=== PATIENT | female | born 1950 | race Caucasian/White ===

== ENCOUNTER 2017-12-04 13:30 | Emergency (ER) | payer BC ==
--- OUTSIDE RECORDS SUMMARY | 2017-12-04 13:37 | XMS REPORT ---
:1950 External Reference #:[id number] Author Organization [facility] Address [address] [address] Phone [phone] Care Team Providers Name Role Phone Janette Bailon MD Primary Care Physician Unavailable Payers Type Date Identification Numbers Payment Provider Subscriber Commercial Effective: Policy Number: [id number] BS Gus Gamble 2017 PayID: [id number] [facility] [id number] ILA Teixeira [id number] Medigap Part B Effective: 2011 Policy Number: BS Gus Gamble [id number] Expires: 2017 PayID: [id number] [place] [id number] ILA Te[place] [id number] Medigap Part B Effective: 2003 Policy Number: BS Caio Gamble [id number] Expires: 2011 Group Number: [id number] [facility] [id number] PayID: [id number] ILA Teixeira [id number] Problems Date Description Provider Status Onset: 07/26/2011 Migraine Heather Sanderson, N.P. Active Onset: 07/26/2011 Hyperlipidemia Heather Sanderson, N.P. 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 Cigarette Use Never Smoked Cigarettes ETOH Use Currently consumes alcohol Rare Smoking Patient has never smoked Recreational Drug Use Denies Drug Use Daily Caffeine Consumes on average 2 cups of decaff coffee per day Exercise Type/Frequency Exercises regularly 3 - 4 times weekly Allergies, Adverse Reactions, Alerts Date Description Reaction Status Severity Comments 01/10/2011 NKDA active Medications Medication Date Status Form Strength Qnty SIG Indications Ordering Provider Amoxicillin/Cl 11/14 Active Tablets 875-125mg 14tab take 1 tab J02.9 Zsofia avulanate s by mouth Donavon, Potassium twice a day CIGARETTE SELLER for 7 days Venlafaxine 11/05 Active Caps ER 75mg 30cap 1 by mouth Heather HCL 24HR s every day Varn, N.P. Fluticasone 04/15 Active Suspension 50mcg/Act 16gm 1 spray each 461.9 Heather Propionate nostril Varn, N.P. daily as needed Lipitor 08/27 Active Tablets 20mg 90tab take one E78.5 Snow s tablet by Skyla, mouth every M.D., FACP day Zolpidem 07/26 Active Tablets 5mg 30tab 1 tablet by Janette Tartrate s mouth as Cotton, needed at M.D. bedtime Estrace 07/26 Active Cream 0.1mg/GM 42.5u insert one nits gram Skyla, vaginally M.D., FACP once weekly Meloxicam 07/30 Hx Tablets 7.5mg 30tab 1 by mouth M79.671 Damon s per day Zia Carrasco M.D. 10/13 Venlafaxine 08/04 Hx Caps ER 150mg 90cap 1 by mouth Heather HCL 24HR s every day Varn, N.P. - 11/05 Ciprofloxacin 05/09 Hx Tablets 250mg 14tab 1 tab by 599.0 Anshul HCL s mouth twice Romanian, PICK REMOVER - a day x's 7 Azithromycin 08/01 Hx Tablets 250mg 6tabs two tabs day 461.9 Snow one, one Skyla, - daily till M.D., FACP 08/11 Vicodin 10/19 Hx Tablets 5-300mg 40tab 1-2tabs po s q4-6h Young, - M.D. 08/01 Venlafaxine 12/05 Hx Caps ER 75mg 90cap take one Heather HCL 24HR s capsule by Maria E, N.P. - mouth every Azithromycin 04/15 Hx Tablets 250mg 6tabs two tabs day 461.9 one, one Skyla, - daily till M.D., FACP 04/25 Ventolin HFA 04/15 Hx Aerosol 108(90Bas 1inha 1 to 2 466.0 e) mcg/ac ler inhalations Skyla, - every 4 M.D., FACP 10/25 hours needed Azithromycin 01/01 Hx Tablets 250mg 6tabs two tabs day one, one Skyla, - daily until M.D., FACP 01/06 Levaquin 01/16 Hx Tablets 250mg 7tabs 1 tab by 466.0 mouth every Skyla, - day for 7 M.D., FACP Flovent HFA 01/16 Hx Aerosol 44mcg/Act 10.60 2 puffs 466.0 0gm twice daily Skyla, - M.D., FACP 01/26 Robitussin ac 01/16 Hx Solution 4Oz 1-2 tsp at 466.0 bedtime as Skyla, - needed M.D., FACP 01/21 Azithromycin 01/02 Hx Tablets 250mg 6tabs two tabs day one, one Skyla, - daily till M.D., FACP 01/16 Veramyst 01/02 Hx Suspension 27.5mcg/S 1mon 2 sprays pray each nostril Skyla, - daily as M.D., FACP 07/26 Effexor XR 12/19 Hx Caps ER 75mg 90cap Take One 24HR s Capsule By Skyla, - Mouth Every M.D., FACP Multi Vitamin Hx Tablets 1 tablet Unknown Daily /0000 patricia(not - presently 08/19 taking) Co Q 10 Hx Capsules 100mg 2 by mouth Unknown /0000 every day - 11/05 Medications Administered in Office Medication Date Status Form Strength Qnty SIG Indications Ordering Provider Triamcinolone Injection Zaneb (Kenalog) 2014 MD Sadia Immunizations CPT Code Status Date Vaccine Lot # [id number] Given 07/23/2017 Fluzone High Dose Q2039 Given 07/20/2016 Flu Vaccine NOS Q2037 Given 08/10/2015 Fluvirin Im 3Yrs And Older Q2035 Given 08/04/2014 Afluria Vaccine 21541 Given 08/01/2014 Zoster (Zostavax) [id number] Given 08/16/2013 Fluzone High Dose Q2037 Given 08/10/2012 Fluvirin Im 3Yrs And Older 86777 Given 01/02/2012 Tdap - Tetanus/Diptheria/Acellular Pertussis [id number] Q2037 Given 08/16/2011 Fluvirin Im 3Yrs And Older 04850 Given 09/13/2008 Influenza Virus 3Yrs & Over 02638 Given 09/13/2008 Influenza Virus 3Yrs & Over 91479 Given 09/01/2006 Influenza Virus 3Yrs & Over Vital Signs Date Vital Result Comment 11/14/2017 Height 67.5 inches 5'7.50" Weight 161.00 lb Heart Rate 84 /min BP Systolic Sitting 142 mmHg BP Diastolic Sitting 83 mmHg Respiratory Rate 14 /min Body Temperature 96.6 F O2 % BldC Oximetry 96 % BMI (Body Mass Index) 24.8 kg/m2 08/20/2017 Height 67.5 inches 5'7.50" Weight 164.75 lb with shoes Heart Rate 82 /min BP Systolic Sitting 144 mmHg LA reg cuff BP Diastolic Sitting 84 mmHg LA reg cuff BMI (Body Mass Index) 25.4 kg/m2 Ejection Fraction 55% - 60% echo 10/25/16 11/13/2016 Height 67.5 inches 5'7.50" Weight 163.00 lb Heart Rate 78 /min BP Systolic Sitting 132 mmHg Ra< reg BP Diastolic Sitting 70 mmHg Ra< reg BMI (Body Mass Index) 25.1 kg/m2 Ejection Fraction 55%-60% 10/25/17 echo 11/05/2016 Height 67.5 inches 5'7.50" Weight 159.00 lb Heart Rate 80 /min BP Systolic Sitting 122 mmHg BP Diastolic Sitting 76 mmHg Respiratory Rate 15 /min Body Temperature 97.9 F O2 % BldC Oximetry 98 % BMI (Body Mass Index) 24.5 kg/m2 10/14/2016 Height 68 inches 5'8" Weight 163.00 lb with shoes Heart Rate 88 /min BP Systolic Sitting 146 mmHg LA reg cuff BP Diastolic Sitting 88 mmHg LA reg cuff BMI (Body Mass Index) 24.8 kg/m2 10/10/2016 Height 68 inches 5'8" Weight 155.00 lb Pain Level 5 BMI (Body Mass Index) 23.6 kg/m2 09/11/2016 Height 68 inches 5'8" Weight 155.00 lb Heart Rate 78 /min BP Systolic 142 mmHg BP Diastolic 78 mmHg BMI (Body Mass Index) 23.6 kg/m2 07/30/2016 Height 68 inches 5'8" Weight 155.00 lb Heart Rate 89 /min BP Systolic 146 mmHg BP Diastolic 90 mmHg BMI (Body Mass Index) 23.6 kg/m2 07/23/2016 Height 67 inches 5'7" Weight 160.00 lb Heart Rate 87 /min BP Systolic 131 mmHg BP Diastolic 82 mmHg Body Temperature 98.9 F O2 % BldC Oximetry 98 % BMI (Body Mass Index) 25.1 kg/m2 04/23/2016 Weight 158.50 lb Heart Rate 91 /min BP Systolic Sitting 125 mmHg BP Diastolic Sitting 76 mmHg Body Temperature 99.2 F O2 % BldC Oximetry 97 % 09/19/2015 Height 67 inches 5'7" Weight 157.00 lb BMI (Body Mass Index) 24.6 kg/m2 09/13/2015 Height 67.25 inches 5'7.25" Weight 159.00 lb Heart Rate 84 /min BP Systolic Sitting 124 mmHg BP Diastolic Sitting 82 mmHg Respiratory Rate 15 /min O2 % BldC Oximetry 96 % BMI (Body Mass Index) 24.7 kg/m2 08/04/2015 Height 67.25 inches 5'7.25" Weight 162.00 lb Heart Rate 71 /min BP Systolic Sitting 135 mmHg BP Diastolic Sitting 83 mmHg Body Temperature 97.9 F O2 % BldC Oximetry 98 % BMI (Body Mass Index) 25.2 kg/m2 05/09/2015 Height 68 inches 5'8" Weight 159.25 lb Heart Rate 94 /min BP Systolic Sitting 122 mmHg BP Diastolic Sitting 72 mmHg Body Temperature 97.6 F O2 % BldC Oximetry 98 % BMI (Body Mass Index) 24.2 kg/m2 10/25/2014 Height 68 inches 5'8" Weight 163.00 lb boots on Heart Rate 78 /min BP Systolic Sitting 138 mmHg BP Diastolic Sitting 80 mmHg BMI (Body Mass Index) 24.8 kg/m2 08/01/2014 Height 68 inches 5'8" Weight 156.00 lb Heart Rate 74 /min BP Systolic Sitting 114 mmHg BP Diastolic Sitting 70 mmHg Body Temperature 98.6 F O2 % BldC Oximetry 96 % BMI (Body Mass Index) 23.7 kg/m2 10/05/2013 Height 68 inches 5'8" Weight 155.00 lb Heart Rate 84 /min BP Systolic 146 mmHg BP Diastolic 88 mmHg BMI (Body Mass Index) 23.6 kg/m2 07/30/2013 Height 68 inches 5'8" Weight 158.00 lb Heart Rate 72 /min BP Systolic Sitting 130 mmHg BP Diastolic Sitting 80 mmHg BMI (Body Mass Index) 24.0 kg/m2 02/03/2013 Height 68 inches 5'8" Weight 158.00 lb Heart Rate 64 /min BP Systolic Sitting 136 mmHg BP Diastolic Sitting 78 mmHg BMI (Body Mass Index) 24.0 kg/m2 07/28/2012 Height 68 inches 5'8" Weight 156.00 lb Heart Rate 72 /min BP Systolic Sitting 132 mmHg BP Diastolic Sitting 72 mmHg BMI (Body Mass Index) 23.7 kg/m2 04/15/2012 Height 68 inches 5'8" Weight 157.00 lb Heart Rate 84 /min BP Systolic Sitting 126 mmHg BP Diastolic Sitting 72 mmHg Body Temperature 98.7 F BMI (Body Mass Index) 23.9 kg/m2 01/07/2012 Height 68 inches 5'8" Weight 157.25 lb Heart Rate 60 /min BP Systolic Sitting 120 mmHg BP Diastolic Sitting 70 mmHg BMI (Body Mass Index) 23.9 kg/m2 08/27/2011 Height 68 inches 5'8" Weight 157.00 lb Heart Rate 60 /min BP Systolic Sitting 118 mmHg L BP Diastolic Sitting 74 mmHg L BMI (Body Mass Index) 23.9 kg/m2 07/26/2011 Height 68 inches 5'8" Weight 153.00 lb Heart Rate 72 /min BP Systolic Sitting 128 mmHg L BP Diastolic Sitting 80 mmHg L BMI (Body Mass Index) 23.3 kg/m2 01/16/2011 Weight 156.00 lb Heart Rate 80 /min BP Systolic 106 mmHg BP Diastolic 70 mmHg Body Temperature 99.8 F 01/02/2011 Weight 156.00 lb Heart Rate 82 /min BP Systolic 120 mmHg BP Diastolic 70 mmHg Body Temperature 98.3 F Results Test Date Test Result H/L Range Note Laboratory test finding 11/05/2016 Cytology SEE RESULT BELOW 1 HPV Rna Ww/Reflex Genotype Negative Negative 2 CBC Auto Diff 10/16/2016 White Blood Count 3.6 10^3/uL 3.5-10.8 Red Blood Count 4.03 10^6/uL 4.0-5.4 Hemoglobin 13.1 g/dL 12.0-16.0 Hematocrit 39 % 35-47 Mean Corpuscular Volume 98 fL High 80-97 Mean Corpuscular Hemoglobin 33 pg High 27-31 Mean Corpuscular HGB Conc 33 g/dL 31-36 Red Cell Distribution Width 12 % 10.5-15 Platelet Count 180 10^3/uL 150-450 Mean Platelet Volume 10 um3 7.4-10.4 Abs Neutrophils 2.3 10^3/uL 1.5-7.7 Abs Lymphocytes 1.0 10^3/uL 1.0-4.8 Abs Monocytes 0.2 10^3/uL 0-0.8 Abs Eosinophils 0.1 10^3/uL 0-0.6 Abs Basophils 0 10^3/uL 0-0.2 Abs Nucleated RBC 0 10^3/uL Granulocyte % 64.0 % 38-83 Lymphocyte % 26.8 % 25-47 Monocyte % 6.8 % 1-9 Eosinophil % 1.5 % 0-6 Basophil % 0.9 % 0-2 Nucleated Red Blood Cells % 0 Comp Metabolic Panel 10/16/2016 Sodium 140 mmol/L 133-145 Potassium 4.0 mmol/L 3.5-5.0 Chloride 103 mmol/L 101-111 Co2 Carbon Dioxide 33 mmol/L High 22-32 Anion Gap 4 mmol/L 2-11 Glucose 84 mg/dL 70-100 Blood Urea Nitrogen 16 mg/dL 6-24 Creatinine 0.66 mg/dL 0.51-0.95 BUN/Creatinine Ratio 24.2 High 8-20 Calcium 9.2 mg/dL 8.6-10.3 Total Protein 6.6 g/dL 6.4-8.9 Albumin 4.1 g/dL 3.2-5.2 Globulin 2.5 g/dL 2-4 Albumin/Globulin Ratio 1.6 1-3 Total Bilirubin 0.60 mg/dL 0.2-1.0 Alkaline Phosphatase 93 U/L 34-104 Alt 18 U/L 7-52 Ast 18 U/L 13-39 Egfr Non- 89.6 >60 Egfr 115.2 >60 3 Laboratory test finding 10/16/2016 Cortisol 11.26 ?g/dL 4 Magnesium 2.2 mg/dL 1.9-2.7 T3 Free 2.60 pg/mL 2.5-3.9 Free T4 (Free Thyroxine) 0.75 ng/dL 0.61-1.12 TSH (Thyroid Stim Horm) 1.21 mcIU/mL 0.34-5.60 Vitamin D 1,25 And Vitamin 10/16/2016 Vitamin D Total 25(Oh) 62.1 ng/mL High 30-50 D,2 Vitamin D, 1,25 Dihydroxy 66 pg/mL 18-78 5 Laboratory test finding 10/16/2016 Vitamin B12 456 pg/mL 180-914 6 Lipid Profile (Trig/Chol/HDL) 10/16/2016 Triglycerides 78 mg/dL 7 Cholesterol 143 mg/dL 8 HDL Cholesterol 48.4 mg/dL 9 LDL Cholesterol 79 mg/dL 10 Laboratory test 07/16/2016 C Reactive Protein < 1.00 mg/L < 5.00 11, 12 finding CBC Auto Diff 07/16/2016 White Blood Count 3.8 10^3/uL 3.5-10.8 11 Red Blood Count 3.98 10^6/uL Low 4.0-5.4 11 Hemoglobin 13.3 g/dL 12.0-16.0 11 Hematocrit 39 % 35-47 11 Mean Corpuscular Volume 99 fL High 80-97 11 Mean Corpuscular Hemoglobin 33 pg High 27-31 11 Mean Corpuscular HGB Conc 34 g/dL 31-36 11 Red Cell Distribution Width 12 % 10.5-15 11 Platelet Count 166 10^3/uL 150-450 11 Mean Platelet Volume 11 um3 High 7.4-10.4 11 Abs Neutrophils 2.4 10^3/uL 1.5-7.7 11 Abs Lymphocytes 1.0 10^3/uL 1.0-4.8 11 Abs Monocytes 0.3 10^3/uL 0-0.8 11 Abs Eosinophils 0 10^3/uL 0-0.6 11 Abs Basophils 0.1 10^3/uL 0-0.2 11 Abs Nucleated RBC 0.01 10^3/uL 11 Granulocyte % 63.6 % 38-83 11 Lymphocyte % 27.0 % 25-47 11 Monocyte % 6.9 % 1-9 11 Eosinophil % 1.2 % 0-6 11 Basophil % 1.3 % 0-2 11 Nucleated Red Blood Cells % 0.4 11 Laboratory test finding 07/16/2016 Erythrocyte Sed Rate 12 mm/Hr 0-40 11 , 13 Rheumatoid Factor <15 IU/mL <15 11, 14 Laboratory test finding 07/16/2016 Lyme Disease Serology Negative Negative 11, 15 Anti Nuclear Antibody 0.2 U 11, 16 Hla B27 07/16/2016 Hla B27 Negative 11, 17 Hla B27 Interp See Comment 11, 18 Basic Metabolic Panel 04/24/2016 Sodium 138 mmol/L 133-145 Potassium 4.4 mmol/L 3.5-5.0 Chloride 102 mmol/L 101-111 Co2 Carbon Dioxide 31 mmol/L 22-32 Anion Gap 5 mmol/L 2-11 Glucose 89 mg/dL 70-100 Blood Urea Nitrogen 19 mg/dL 6-24 Creatinine 0.63 mg/dL 0.51-0.95 BUN/Creatinine Ratio 30.2 High 8-20 Calcium 9.7 mg/dL 8.6-10.3 Egfr Non- 94.8 >60 Egfr 122.0 >60 19 CBC Auto Diff 04/24/2016 White Blood Count 5.2 10^3/uL 3.5-10.8 Red Blood Count 4.14 10^6/uL 4.0-5.4 Hemoglobin 13.5 g/dL 12.0-16.0 Hematocrit 41 % 35-47 Mean Corpuscular Volume 98 fL High 80-97 Mean Corpuscular Hemoglobin 33 pg High 27-31 Mean Corpuscular HGB Conc 33 g/dL 31-36 Red Cell Distribution Width 13 % 10.5-15 Platelet Count 174 10^3/uL 150-450 Mean Platelet Volume 11 um3 High 7.4-10.4 Abs Neutrophils 3.2 10^3/uL 1.5-7.7 Abs Lymphocytes 1.6 10^3/uL 1.0-4.8 Abs Monocytes 0.3 10^3/uL 0-0.8 Abs Eosinophils 0.1 10^3/uL 0-0.6 Abs Basophils 0 10^3/uL 0-0.2 Abs Nucleated RBC 0 10^3/uL Granulocyte % 62.1 % 38-83 Lymphocyte % 30.1 % 25-47 Monocyte % 6.2 % 1-9 Eosinophil % 1.2 % 0-6 Basophil % 0.4 % 0-2 Nucleated Red Blood Cells % 0 Laboratory test finding 04/24/2016 TSH (Thyroid Stim Horm) 1.22 ?IU/mL 0.34-5.60 20 Lipid Profile 07/27/2015 Triglycerides 80 mg/dL 21 (Trig/Chol/HDL) Cholesterol 152 mg/dL 22 HDL Cholesterol 53.2 mg/dL 23 LDL Cholesterol 83 mg/dL 24 Laboratory test finding 07/27/2015 Glucose 88 mg/dL 70-100 Ua Routine 05/09/2015 Ua Specific [place] 1000 Ua PH 9 Ua Color yellow Ua Appera clear Ua WBC + Ua Protein neg Ua Glucose neg Ua Ketones neg Ua Bilirubin neg Ua Urobilinogen normal Ua Nitrite neg Ua Occult Blood trace Laboratory test 08/01/2014 Cytology RUN DATE: finding <SEE NOTE> HPV High Risk 08/01/2014 Human Papillomavirus See Comment 26 Source HPV High Risk Type 16, PCR Negative Negative HPV High Risk Type 18, PCR Negative Negative HPV Other Risk types Negative Negative 27 Laboratory test 07/26/2014 TSH (Thyroid 1.28 IU/mL 0.34-5.60 28, 29 finding Stimulating Horm) Comp Metabolic Panel 07/26/2014 Sodium 140 mmol/L 133-145 28 Potassium 4.1 mmol/L 3.7-5.6 28 Chloride 102 mmol/L 101-111 28 Co2 Carbon Dioxide 34 mmol/L High 22-32 28 Anion Gap 4 mmol/L 2-11 28 Glucose 81 mg/dL 70-100 28 Blood Urea Nitrogen 13 mg/dL 6-24 28 Creatinine 0.63 mg/dL 0.51-0.95 28 BUN/Creatinine Ratio 20.6 High 8-20 28 Calcium 9.5 mg/dL 8.6-10.3 28 Total Protein 6.7 g/dL 6.4-8.9 28 Albumin 4.3 g/dL 3.2-5.2 28 Globulin 2.4 g/dL 2-4 28 Albumin/Globulin Ratio 1.8 1-3 28 Total Bilirubin 0.80 mg/dL 0.2-1.0 28 Alkaline Phosphatase 64 U/L 34-104 28 Alt 20 U/L 7-52 28 Ast 21 U/L 13-39 28 Egfr Non- 95.4 >60 28 Egfr 122.7 >60 28, 30 Lipid Profile (Trig/Chol/HDL) 07/26/2014 Triglycerides 110 mg/dL 28, 31 Cholesterol 152 mg/dL 28, 32 HDL Cholesterol 51.0 mg/dL 28, 33 LDL Cholesterol 79 mg/dL 28, 34 Laboratory test finding 08/04/2013 Hepatitis C Antibody Nonreactive Nonreactive 35 Lipid Profile 08/04/2013 Triglycerides 43 mg/dL 40-200 (Trig/Chol/HDL) Cholesterol 145 mg/dL Less than 200 HDL Cholesterol 54 mg/dL 40-60 36 Cholesterol/HDL Ratio 2.7 Average 1-4.44 LDL Cholesterol 82.4 Less Than 100 37 Comp Metabolic Panel 08/04/2013 Sodium 140 mmol/L 133-145 Potassium 4.1 mmol/L 3.5-5.0 Chloride 106 mmol/L 101-111 Co2 Carbon Dioxide 29.0 mmol/L 22-32 Anion Gap 5.0 mmol/L 2-11 Glucose 93 mg/dL 70-100 Blood Urea Nitrogen 13 mg/dL 6-24 Creatinine 0.60 mg/dL 0.50-1.40 BUN/Creatinine Ratio 21.7 High 8-20 Calcium 9.5 mg/dL 8.1-9.9 Total Protein 6.3 g/dL 6.2-8.1 Albumin 4.0 g/dL 3.2-5.2 Globulin 2.3 g/dL 2-4 Albumin/Globulin Ratio 1.7 1-3 Total Bilirubin 0.9 mg/dL 0.4-1.5 Alkaline Phosphatase 56 U/L 30-110 Alt 25 U/L 14-54 Ast 29 U/L 12-42 Egfr Non- 101.3 >60 Egfr 130.3 >60 38 Laboratory test finding 08/04/2013 TSH (Thyroid Stimulating 1.05 miu/mL 0.34-5.60 Horm) Comp Metabolic Panel 08/04/2012 Sodium 141 mmol/L 133-145 Potassium 4.1 mmol/L 3.5-5.0 Chloride 105 mmol/L 101-111 Co2 Carbon Dioxide 32.0 mmol/L 22-32 Anion Gap 4.0 mmol/L 2-11 Glucose 85 mg/dL 70-100 Blood Urea Nitrogen 19 mg/dL 6-24 Creatinine 0.70 mg/dL 0.50-1.40 BUN/Creatinine Ratio 27.1 High 8-20 Calcium 9.5 mg/dL 8.1-9.9 Total Protein 7.0 GM/DL 6.2-8.1 Albumin 4.2 GM/DL 3.2-5.2 Globulin 2.8 GM/DL 2-4 Albumin/Globulin Ratio 1.5 1-3 Total Bilirubin 1.0 mg/dL 0.1-1.0 39 Alkaline Phosphatase 68 U/L 30-110 Alt 27 U/L 14-54 Ast 27 U/L 12-42 Egfr Non- 85.1 >60 Egfr 109.4 >60 40 Lipid Profile (Trig/Chol/HDL) 08/04/2012 Triglycerides 77 mg/dL 40-200 Cholesterol 147 mg/dL Less than 200 41 HDL Cholesterol 54 mg/dL 40-60 42 Cholesterol/HDL Ratio 2.7 AVERAGE 1-4.44 LDL Cholesterol 77.6 mg/dL Less Than 100 Laboratory test 08/04/2012 Varicella-Zoster IgG Positive 43 finding Antibody Laboratory test 08/04/2012 TSH (Thyroid Stimulating 1.44 MIU/ML 0.34- 5.60 44 finding Horm) Ua Routine 07/28/2012 Ua Specific [place] 1.015 Ua PH 6 Ua Color yellow Ua Appera clear Ua WBC trace Ua Protein neg Ua Glucose neg Ua Ketones neg Ua Bilirubin small Ua Urobilinogen neg Ua Nitrite neg Ua Occult Blood neg Laboratory test 07/28/2012 Cytology <SEE 45 finding NOTE> Lipid Profile 10/23/2011 Triglyceride 77 mg/dL 40-200 (Trig/Chol/HDL) Cholesterol 171 mg/dL Less Than 200 46 High Density Lipoprotein 56 mg/dL 40-60 47 Cholesterol/HDL Ratio 3.05 AVERAGE 1-4.44 Low Density Lipoprotein 100 mg/dL Less Than 100 48 Liver Function Panel 10/23/2011 Total Protein 7.2 GM/DL 6.2-8.1 Albumin 4.4 GM/DL 3.2-5.2 Globulin 2.8 GM/DL 2-4 Albumin/Globulin Ratio 1.6 1-3 Bilirubin Total 1.0 mg/dL 0.4-1.5 49 Bilirubin Direct 0.1 mg/dL 0.1-0.5 Indirect Bilirubin 0.9 mg/dL 0.3-1.0 50 Alkaline Phosphatase 70 U/L 30-110 Alt (SGPT) 29 U/L 14-54 Ast (Sgot) 28 U/L 12-42 Lipid Profile (Trig/Chol/HDL) 08/13/2011 Triglyceride 98 mg/dL 40-200 Cholesterol 253 mg/dL High Less Than 200 51 High Density Lipoprotein 58 mg/dL 40-60 52 Low Density Lipoprotein 175 mg/dL High Less Than 100 53 Cholesterol/HDL Ratio 4.36 AVERAGE 1-4.44 Comp Metabolic Panel 08/13/2011 Sodium 141 mmol/L 135-145 Potassium 4.4 mmol/L 3.5-5.0 Chloride 104 mmol/L 101-111 Co2 (Carbon Dioxide) 32.0 mmol/L 22-32 Anion Gap 5.0 mmol/L 2-11 54 Glucose 81 mg/dL 70-100 BUN 16 mg/dL 6-24 Creatinine 0.7 mg/dL 0.50-1.40 One Over Creatinine 1.42 BUN/Creatinine Ratio 22.9 High 8-20 Calcium 9.6 mg/dL 8.1-9.9 Total Protein 6.8 GM/DL 6.2-8.1 Albumin 4.0 GM/DL 3.2-5.2 Globulin 2.8 GM/DL 2-4 Albumin/Globulin Ratio 1.4 1-3 Bilirubin Total 1.1 mg/dL 0.4-1.5 55 Alkaline Phosphatase 57 U/L 30-110 Alt (SGPT) 23 U/L 14-54 Ast (Sgot) 27 U/L 12-42 eGFR Non- 85.4 > 60 eGFR 109.8 > 60 56 Laboratory test finding 08/13/2011 TSH 1.70 MIU/ML 0.34-5.60 Laboratory test finding 07/26/2011 Cytology <SEE 57 NOTE> 1 SEE RESULT BELOW Name: NICOLE GAMBLE : [address]: Heather Sadnerson NP Acct: [id number] Unit: [id number] AGE: 66 Location: [facility] Re11/05/16 SEX: F Status: REG REF SPEC: [id number] TYRELL: 11/05/16-[address]: Heather Sanderson NP REQ: [id number] RECD: 11/05/169300 STATUS: SOUT _ ORDERED: IMAGE ANALYSIS, HPV/Thin Prep, HPV 16/18 GENE COMMENTS: [id number] FINAL DIAGNOSIS Negative for Intraepithelial lesion or Malignancy A. Ectocervical/Endocervical Specimen Adequacy: Satisfactory of evaluation Transformation zone component cannot be definitely identified due to presence of atrophy or other hormonal changes Patient Information: HPV: High risk HPV RNA testing regardless of pap results. HPV 16/18 Genotype Reflex Actual Specimen Date: 11/05/16 LMP If Unknown: ? age 50 +/- ?: N Post Menopausal?: Y Hysterectomy?: N Previous Abnormal Pap Smears?:N Date Time Test Result Flag (u) Normal Range 11/05/16 1008 HPV RNA RFLX GE Negative Negative The high-risk HPV types detected by the assay include: 16, 18, 31, 33, 35, 39, 45, 51, 52, 56, 58, 59, 66, and 68. Signed (signature on file) NEGIN Gregorio(ASCP) 11/06 1319 This Pap test was evaluated with the assistance of the [employer] Test Imaging System. Due to cytologic findings at the welfare adviser microscope, comprehensive manual rescreening by a Box Printer may be required. The Pap Smear is a screening test designed to aid in the detection of premalignant and malignant conditions of the uterine cervix. It is not a diagnostic procedure and should not be used as the sole means of detecting cervical cancer. Both false- positive and false- negative reports do occur. Depending on your risk status, a Pap smear should be obtained and evaluated every 1-3 years. END OF REPORT * ML=Testing performed at Main Lab DEPARTMENT OF PATHOLOGY, [address] [place] [id number] RUN DATE: 11/06/16 [facility] LIVE PAGE 1 Patient: NICOLE GAMBLE [id number] (Continued) Neo Espinoza M.D. Director [facility] # [id number] 2 The high-risk HPV types detected by the assay include: 16, 18, 31, 33, 35, 39, 45, 51, 52, 56, 58, 59, 66, and 68. 3 Because ethnic data is not always readily available, this report includes an eGFR for both -Americans and non- Americans. The National Kidney Disease Education Program (NKDEP) does not endorse the use of the MDRD equation for patients that are not between the ages of 18 and 70, are , have extremes of body size, muscle mass, or nutritional status, or are non- or non-. According to the National Kidney Foundation, irrespective of diagnosis, the stage of the disease is based on the level of kidney function: Stage Description GFR(mL/min/1.73 m(2)) 1 Kidney damage with normal or decreased GFR 90 2 Kidney damage with mild decrease in GFR 60-89 3 Moderate decrease in GFR 30-59 4 Severe decrease in GFR 15-29 5 Kidney failure <15 (or dialysis) 4 AM 8.7-22.4 PM <10 5 ADDITIONAL INFORMATION This test was developed and its performance characteristics determined by [facility] in a manner consistent with CLIA requirements. This test has not been cleared or approved by the U.S. Food and Drug Administration. Test Performed by: [place] [address] Plastics Fabricator Or Welder: Toño Soriano II, M.D., Ph.D. 6 Normal Range 180 to 914 Indeterminate Range 145 to 180 Deficient Range <145 7 Desirable <150 Borderline high 150-199 High 200-499 Very High >500 8 Desirable <200 Borderline high 200-239 High >239 9 Low <40 Desirable: 40-60 High: >60 10 Desirable: <100 mg/dL Near Optimal: 100-129 mg/dL Borderline High: 130-159 mg/dL High: 160-189 mg/dL Very High: >189 mg/dL 11 PLEASE FAX RESULTS TO [phone] 12 Acute inflammation: >10.00 13 PLEASE FAX RESULTS TO [phone] Test Performed by: [place] [address] [employer] Fabricator Or Welder: Toño Soriano II, M.D., Ph.D. 15 Serologic response to B. burgdorferi infection is not detected, but cannot rule out early infection during which low or undetectable antibody levels to B. burgdorferi may be present. If clinically indicated, a new serum specimen should be submitted in 7-14 days. Test Performed by: [place] [address] Plastics Fabricator Or Welder: Toño Soriano II, M.D., Ph.D. 16 REFERENCE VALUE <=1.0 (Negative) Test Performed by: [place] [address] Plastics Fabricator Or Welder: Toño Soriano II, M.D., Ph.D. 17 REFERENCE VALUE Not Applicable 18 RESULT: HLA-B27 antigen was not detected. ADDITIONAL INFORMATION Method: Flow Cytometry Performing Laboratory CLIA# [id number] Test Performed by: [place] [address] Plastics Fabricator Or Welder: Toño Soraino II, M.D., Ph.D. 19 Because ethnic data is not always readily available, this report includes an eGFR for both -Americans and non- Americans. The National Kidney Disease Education Program (NKDEP) does not endorse the use of the MDRD equation for patients that are not between the ages of 18 and 70, are , have extremes of body size, muscle mass, or nutritional status, or are non- or non-. According to the National Kidney Foundation, irrespective of diagnosis, the stage of the disease is based on the level of kidney function: Stage Description GFR(mL/min/1.73 m(2)) 1 Kidney damage with normal or decreased GFR 90 2 Kidney damage with mild decrease in GFR 60-89 3 Moderate decrease in GFR 30-59 4 Severe decrease in GFR 15-29 5 Kidney failure <15 (or dialysis) 20 [id number] 21 Desirable <150 Borderline high 150-199 High 200-499 Very High >500 22 Desirable <200 Borderline high 200-239 High >239 23 Low <40 Desirable: 40-60 High: >60 24 Desirable: <100 mg/dL Near Optimal: 100-129 mg/dL Borderline High: 130-159 mg/dL High: 160-189 mg/dL Very High: >189 mg/dL 25 RUN DATE: 08/02/14 [facility] LIVE PAGE 1 RUN TIME: [address] [place] [address] 10008 Specimen Inquiry Name: INCOLE GAMBLE Leno : [address]: Heather Sanderson NP Acct: [id number] Unit: [id number] AGE: 63 Location: [facility] Re08/01/14 SEX: F Status: REG REF SPEC: [id number] TYRELL: 08/01/14-[address]: Heather Sanderson NP REQ: [id number] RECD: 08/01/14 STATUS: SOUT _ ORDERED: IMAGE ANALYSIS, HPV/Thin Prep FINAL DIAGNOSIS Negative for Intraepithelial lesion or Malignancy COMMENTS: Specimen sent to [facility] in [place], [place] on 08/02/14 by [id number] at 1507. Results will be reported separately. A. Ectocervical/Endocervical Specimen Adequacy: Satisfactory of evaluation Transformation zone component identified Patient Information: HPV: High risk HPV DNA testing regardless of pap results. Actual Specimen Date: 08/01/14 LMP If Unknown: Last Menstrual Period Not Given. ?: N Signed (signature on file) NEGIN Mclaughlin (ASCP) 08/02 1510 This Pap test was evaluated with the assistance of the ThinPrep Test Imaging System. Due to cytologic findings at the welfare adviser microscope, comprehensive manual rescreening by a Box Printer may be required. The Pap Smear is a screening test designed to aid in the detection of premalignant and malignant conditions of the uterine cervix. It is not a diagnostic procedure and should not be used as the sole means of detecting cervical cancer. Both false- positive and false- negative reports do occur. Depending on your risk status, a Pap smear shoudl be obtained and evaluated every 1-3 years. END OF REPORT * ML=Testing performed at [facility] DEPARTMENT OF PATHOLOGY, [address] [place] [address] Neo Espinoza M.D. Director [facility] # [id number] 26 RESULT: Ectocervical/Endocervical 27 The following Other High Risk HPV types were not detected: 31, 33, 35, 39, 45, 51, 52, 56, 58, 59, 66, and 68 Test Performed by: [place] [address] Plastics Fabricator Or Welder: Nick Torrez M.D. 28 FASTING 29 FASTING 30 Because ethnic data is not always readily available, this report includes an eGFR for both -Americans and non- Americans. The National Kidney Disease Education Program (NKDEP) does not endorse the use of the MDRD equation for patients that are not between the ages of 18 and 70, are , have extremes of body size, muscle mass, or nutritional status, or are non- or non-. According to the National Kidney Foundation, irrespective of diagnosis, the stage of the disease is based on the level of kidney function: Stage Description GFR(mL/min/1.73 m(2)) 1 Kidney damage with normal or decreased GFR 90 2 Kidney damage with mild decrease in GFR 60-89 3 Moderate decrease in GFR 30-59 4 Severe decrease in GFR 15-29 5 Kidney failure <15 (or dialysis) 31 Desirable <150 Borderline high 150-199 High 200-499 Very High >500 32 Desirable <200 Borderline high 200-239 High >239 33 Low <40 Desirable: 40-60 High: >60 34 Desirable <100 Near Optimal 100-129 Borderline high 130-159 High 160-189 Very High >189 35 PT IS FASTING 36 HDL Interpretation: Undesirable: High Risk: Less than 40 mg/dL Desirable: Low Risk: Greater than 60 mg/dL 37 LDL Interpretation: Low Risk Optimal Level: LDL Less than 100 mg/dL Near or Above Optimal: LDL 100-129 mg/dL Borderline High Risk: LDL 130-159 mg/dL High Risk: LDL 160-189 mg/dL Very High Risk: LDL Greater than 189 mg/dL 38 Because ethnic data is not always readily available, this report includes an eGFR for both -Americans and non- Americans. The National Kidney Disease Education Program (NKDEP) does not endorse the use of the MDRD equation for patients that are not between the ages of 18 and 70, are , have extremes of body size, muscle mass, or nutritional status, or are non- or non-. According to the National Kidney Foundation, irrespective of diagnosis, the stage of the disease is based on the level of kidney function: Stage Description GFR(mL/min/1.73 m(2)) 1 Kidney damage with normal or decreased GFR 90 2 Kidney damage with mild decrease in GFR 60-89 3 Moderate decrease in GFR 30-59 4 Severe decrease in GFR 15-29 5 Kidney failure <15 (or dialysis) 39 A metabolite of Naproxen, O-desmethylnaproxen, has been shown to interfere with the Jendrassik-Smethport method for measuring total bilirubin. Samples from patients who have taken Naproxen have shown spurious elevation in total bilirubin levels. 40 Because ethnic data is not always readily available, this report includes an eGFR for both -Americans and non- Americans. The National Kidney Disease Education Program (NKDEP) does not endorse the use of the MDRD equation for patients that are not between the ages of 18 and 70, are , have extremes of body size, muscle mass, or nutritional status, or are non- or non-. According to the National Kidney Foundation, irrespective of diagnosis, the stage of the disease is based on the level of kidney function: Stage Description GFR(mL/min/1.73 m(2)) 1 Kidney damage with normal or decreased GFR 90 2 Kidney damage with mild decrease in GFR 60-89 3 Moderate decrease in GFR 30-59 4 Severe decrease in GFR 15-29 5 Kidney failure <15 (or dialysis) 41 Desirable: Less than 200 MG/DL Borderline-High Risk: 200-239 MG/DL High-Risk: 240 MG/DL and over 42 HDL Interpretation: Undesirable: High Risk: Less than 40 MG/DL Desirable: Low Risk: Greater than 60 MG/DL 43 -- REFERENCE VALUE -- Negative Test Performed by: [facility] [address] [place] [address] Plastics Fabricator Or Welder: Owen Ta III, M.D. R 44 PATIENT IS FASTING 45 ---- RUN DATE: 07/29/12 [facility] NMI LIVE PAGE 1 RUN TIME: 1423 Specimen Inquiry RUN USER: INTERFACE -- Name: NICOLE GAMBLE Accedilma#: [id number] Status: REG REF Re07/28/12 Age/Sex: 61/F Unit#: [id number] Location: [facility] : 50 -- Specimen: [id number] Spec Date:07/28/12-[address]: Heather Sanderson [facility] Spec Type: CYTOLOGY Received:07/29/12-1215 Copies to: SOURCE ECTOCERVICAL/ENDOCERVICAL Thin Prep with Reflex HPV Test PATIENT INFORMATION ACTUAL COLLECTION DATE: 07/28/12 ? No POST MENOPAUSAL? No HYSTERECTOMY? No PREVIOUS ABNORMAL PAP SMEARS No PATIENT HISTORY: Last menstrual period age 59 ADEQUACY OF SPECIMEN Satisfactory for evaluation * Transformation zone component identified * DIAGNOSIS NEGATIVE FOR INTRAEPITHELIAL LESION OR MALIGNANCY * This Pap test was evaluated with the assistance of the CaseroPrep Pap Test Imaging System. The Pap Smear is a screening test designed to aid in the detection of premalign ant and malignant conditions of the uterine cervix. It is not a diagnostic procedure a nd should not be used as the sole means of detecting cervical cancer. Both false- positiv e and false-negative reports do occur. Depending on your risk status, a Pap smear noé uld be obtained and evaluated every one to three years. Final Interpretation electronically signed by: Young WOLFF(ASC) 07/29/12 142 3 -- -- DEPARTMENT OF PATHOLOGY, [address] [place] [address] [facility] Permit #[id number] Neo Espinoza M.D. Director Carline Fernandez M.D. Probation Supervisor Dir kurt -- 46 CHOLESTEROL INTERPRETATION: Desirable: Less than 200 MG/DL Borderline-High Risk: 200-239 MG/DL High-Risk: 240 MG/DL and over 47 HDL INTERPRETATION: Undesirable: High Risk: Less than 40 MG/DL Desirable: Low Risk: Greater than 60 MG/DL 48 LDL INTERPRETATION: Low Risk Optimal Level: LDL Less than 100 MG/DL Near or Above Optimal: LDL 100-129 MG/DL Borderline High Risk: LDL 130-159 MG/DL High Risk: LDL 160-189 MG/DL Very High Risk: LDL Greater than 189 MG/DL 49 A metabolite of Naproxen, O-desmethylnaproxen, has been shown to interfere with the Jenshawik-Everton method for measuring total bilirubin. Samples from patients who have taken Naproxen have shown spurious elevation in total bilirubin levels. 50 Please note updated reference range, effective 05/24/10 51 CHOLESTEROL INTERPRETATION: Desirable: Less than 200 MG/DL Borderline-High Risk: 200-239 MG/DL High-Risk: 240 MG/DL and over 52 HDL INTERPRETATION: Undesirable: High Risk: Less than 40 MG/DL Desirable: Low Risk: Greater than 60 MG/DL 53 LDL INTERPRETATION: Low Risk Optimal Level: LDL Less than 100 MG/DL Near or Above Optimal: LDL 100-129 MG/DL Borderline High Risk: LDL 130-159 MG/DL High Risk: LDL 160-189 MG/DL Very High Risk: LDL Greater than 189 MG/DL 54 Anion gap measurement may be of limited value in the presence of any alkalosis, especially in a combined acid base disorder. . 55 A metabolite of Naproxen, O-desmethylnaproxen, has been shown to interfere with the Jendrassik-Smethport method for measuring total bilirubin. Samples from patients who have taken Naproxen have shown spurious elevation in total bilirubin levels. 56 Because ethnic data is not always readily available, this report includes an eGFR for both -Americans and non- Americans. The National Kidney Disease Education Program (NKDEP) does not endorse the use of the MDRD equation for patients that are not between the ages of 18 and 70, are , have extremes of body size, muscle mass, or nutritional status, or are non- or non-. According to the National Kidney Foundation, irrespective of diagnosis, the stage of the disease is based on the level of kidney function: Stage Description GFR(mL/min/1.73 m(2)) 1 Kidney damage with normal or decreased GFR 90 2 Kidney damage with mild decrease in GFR 60-89 3 Moderate decrease in GFR 30-59 4 Severe decrease in GFR 15-29 5 Kidney failure <15 (or dialysis) 57 ---- RUN DATE: 07/29/11 [facility] NMI LIVE PAGE 1 RUN TIME: 1244 Specimen Inquiry RUN USER: INTERFACE -- [id number] Status: REG REF Re07/26/11 Age/Sex: 60/F Unit#: [id number] Location: [facility] : 50 -- Specimen: [id number] [facility] Spec Date: 07/26/[address]: Heather plunkett [facility] Spec Type: CYTOLOGY Received: 07/29/11-1048 Copies to: SOURCE ECTOCERVICAL/ENDOCERVICAL Thin Prep with Reflex HPV Test PATIENT INFORMATION ACTUAL COLLECTION DATE: 07/26/11 ? No POST MENOPAUSAL? Yes HYSTERECTOMY? No ADEQUACY OF SPECIMEN Satisfactory for evaluation * Transformation zone component not identified * DIAGNOSIS NEGATIVE FOR INTRAEPITHELIAL LESION OR MALIGNANCY * This Pap test was evaluated with the assistance of the ThinPrep Pap Test Imaging System. The Pap Smear is a screening test designed to aid in the detection of premalign ant and malignant conditions of the uterine cervix. It is not a diagnostic procedure a nd should not be used as the sole means of detecting cervical cancer. Both false- positiv e and false-negative reports do occur. Depending on your risk status, a Pap smear noé uld be obtained and evaluated every one to three years. Final Interpretation electronically signed by: Young WOLFF(ASCP) 07/29/11 124 3 -- -- DEPARTMENT OF PATHOLOGY, [address] [place] [address] [facility] Permit #[id number] Neo Espinoza M.D. Director Carline Fernandez M.D. Probation Supervisor Dir kurt -- Procedures Date CPT Code Description Status 08/20/2017 87574 EKG Tracing & Interpretation Completed 06/20/2017 Mammogram Completed 02/26/2017 Colonoscopy Completed 12/24/2016 Bone Mineral Density Test Completed 11/07/2016 14186 ECHO Stress Test Incl Perf Contiuous ekg Monitoring Completed W/Phys Superv 10/25/2016 57371 ECHO Transthoracic, Real-Time 2D With Doppler And Color Completed Flow 10/19/2016 92258 Mobile Cardiovascular Telemetry Over 24 HR Up To 30 Completed Days 10/14/2016 52396 EKG Tracing & Interpretation Completed 06/19/2016 Mammogram Completed 04/25/2016 81297 Holter Monitor Review (24 hr)dr villarreal & albina Completed only 04/24/2016 97363 ECG Monitor/Recording W/Visual Superimposition Scanning Completed 04/23/2016 84958 EKG Tracing & Interpretation Completed 09/19/2015 00347 Inject/Drain Joint/Bursa Major Completed 05/15/2015 Mammogram Completed 05/02/2014 Mammogram Completed 11/18/2013 49244 Rad Shoulder Comp, Min. 2 Views Completed 10/19/2013 42664 Rad Shoulder Comp, Min. 2 Views Completed 10/05/2013 76660 Rad Shoulder Comp, Min. 2 Views Completed 10/05/2013 12538 Closed trtmt prox humeral fx Completed 05/18/2013 Mammogram Completed 03/19/2013 69940 Rad Exam; Wrist, Comp, Min 3 Views Completed 05/08/2012 Mammogram Completed 05/07/2011 Mammogram Completed 05/10/2010 86645 Rad Exam; Wrist Limited, 2 Views Completed 05/03/2010 Mammogram Completed 04/30/2010 86384 Rad Exam; Wrist Limited, 2 Views Completed 04/05/2010 80179 CLST TRMT Distal Radial FX Completed 05/02/2009 Mammogram Completed 10/10/2008 Mammogram Completed 05/23/2008 Bone Mineral Density Test Completed 04/08/2008 Mammogram Completed 09/17/2007 Mammogram Completed 05/08/2007 61722 EKG Tracing & Interpretation Completed 05/08/2007 66810 EKG Tracing & Interpretation Completed 03/20/2007 Mammogram Completed 01/09/2007 Colonoscopy Completed 03/12/2006 Mammogram Completed Encounters Type Date Location Provider CPT E/M Dx Office Visit 08/20/2017 4:00p [facility] Revataybeh SHansel Pace, 40270 I35.1 M.D. I36.1 E78.00 Office Visit 07/15/2017 4:20p [facility] [place] [address] L71.8 D23.72 L81.3 D18.01 Office Visit 11/13/2016 4:00p [facility] Qutaybeh S. Sanjeev, 54400 R00.2 M.D. I35.1 E78.00 Office Visit 11/05/2016 9:20a [facility] Medicine Heather Sanderson N.P. 48743 Z00.01 [facility] E78.00 G43.909 F32.9 M84.374D Office Visit 10/14/2016 9:00a [facility] Julien Pace, 79547 R00.0 M.DHansel R00.2 I49.3 E78.4 Office Visit 10/10/2016 11:15a [facility] Damon Carrasco, 83275 S90.31xD Of Gia Garcia S92.244D Office Visit 09/11/2016 1:20p [facility] Dam[facility] Carrasco 30365 M65.871 [facility] 07/30/2016 1:40p [facility] Damon Carrasco, 49397 M79.671 Of Gia Garcia Office Visit 07/23/2016 1:00p [facility] Internal Medicine Heather Sanderson, N.P. 03434 M79.671 - [place] R60.0 Office Visit 04/23/2016 2:40p [facility] Heather Sanderson N.P. 59078 R00.0 - [place] Office Visit 09/19/2015 9:30a [facility] [place] [address] M70.61 C.M.A. Office Visit 09/13/2015 2:40p [facility] Medicine Heather Sanderson, N.P. 87140 M70.61 - [place] Office Visit 08/04/2015 3:20p [facility] Heather Sanderson, N.P. 36977 Z00.01 - [place] E78.0 E04.2 G43.909 F32.9 Office Visit 05/09/2015 9:00a [facility] [place] [address] [address]0 - [address] Office Visit 10/25/2014 2:20p [facility] Medicine Heather Sanderson, N.P. 84703 719.45 - [place] Office Visit 08/01/2014 3:00p [facility] Internal Medicine Heather Sanderson, N.P. 05455 V70.0 - [place] V72.31 272.4 477.9 241.0 461.9 V05.8 v04.89 Office Visit 07/30/2013 3:00p [facility] Heather Sanderson N.P. 88228 V70.0 - [place] 272.4 346.90 241.0 477.9 311 V72.31 Office Visit 03/19/2013 9:00a [facility] Ira Pollock, 10439 727.43 Of Gia Garcia Office Visit 02/03/2013 11:20a [facility] Internal Heather Varn, N.P. 46428 727.43 Medicine - [place] Office Visit 07/28/2012 3:00p [facility] Internal Heather Varn, N.P. 50714 V70.0 Medicine - [place] V72.31 272.4 346.90 241.0 311 477.9 V73.89 Office Visit 04/15/2012 4:20p [facility] Heather Varn, N.P. 48908 461.9 - [place] 466.0 Office Visit 01/07/2012 4:20p [facility] Medicine Heather Varn, N.P. 47430 719.44 - [place] Office Visit 08/27/2011 3:40p DO Not Use Heather Varn, N.P. 00157 272.4 Production Manufacturing Worker-[place] 246.9 Office Visit 07/26/2011 8:40a DO Not Use Production Manufacturing Worker-[place] Heather Varn, 82804 V70.0 N.P. V72.31 246.9 272.4 Office Visit 01/16/2011 11:00a DO Not Use Production [employer] Worker-[place] Snow Crum, 80656 466.0 M.D., FACP Office Visit 01/02/2011 10:45a DO Not Use Production Manufacturing Worker-[place] Snow Skyla, 72564 780.61 M.D., FACP 465.9 Office Visit 05/28/2010 3:00p DO Not Use Heather Varn, 91040 V72.31 Production Manufacturing Worker-[place] N.P. Office Visit 05/19/2009 8:45a DO Not Use Heather Varn, 53866 V72.31 Production Manufacturing Worker-[place] N.P. Office Visit 09/13/2008 11:00a DO Not Use Heather Varn, 10586 726.32 Production Manufacturing Worker-[place] N.P. 692.9 V04.81 Office Visit 05/17/2008 9:00a DO Not Use Heather Varn, 14634 V72.31 Production Manufacturing Worker-[place] N.P. 241.0 Office Visit 12/22/2007 10:15a DO Not Use Production Manufacturing Worker-[place] Heather Varn, 07159 786.2 N.P. 462 Office Visit 10/06/2007 11:30a DO Not Use Heather Varn, 52111 627.2 Production Manufacturing Worker-[place] N.P. Office Visit 06/25/2007 8:45a DO Not Use Heather Varn, 38644 627.2 Production Manufacturing Worker-[place] N.P. Office Visit 05/08/2007 9:00a DO Not Use Snow Crum M.D., 82752 V72.31 Production Manufacturing Worker-[place] FACP 272.0 Office Visit 01/28/2007 4:30p DO Not Use Production Manufacturing Worker-[place] Heather Varn, 95110 461.9 N.P. Office Visit 11/28/2006 4:00p DO Not Use Production Manufacturing Worker-[place] Heather Varn, 72301 461.9 N.P. 346.01 Office Visit 09/23/2006 4:00p DO Not Use Heather Varn, 98004 719.41 Production Manufacturing Worker-[place] N.P. 723.1 Office Visit 08/06/2006 3:45p DO Not Use Production Manufacturing Worker-[place] Heather Varn, 58191 461.9 N.P. Office Visit 06/12/2006 9:00a DO Not Use Production Manufacturing Worker-[place] Snow Crum M.D., 84723 V70.0 FACP Plan of Care Future Appointment(s):01/21/2018 2:20 pm - Heather Varn, N.P. at [facility] - Qrjzlxprn35/12/2018 - Doni Raphael, FNPJ02.9 Acute pharyngitis, unspecifiedNew Medication:Amoxicillin/Clavulanate Potassium 875-125 mgNew Labs: Rapid Group A StrepComments:For your sore throat I recommend the following care: 1. Rest: plenty of sleep and rest your voice.2.Drink fluids. Drink plenty of water to keep the throat moist and prevent dehydration.3. Try comforting foods and beverage. Warm liquids broth, caffeine-free tea or warm water with honey and cold treats such as ice pops can soothe a sore throat.4. Gargle saltwater. A saltwater gargle of 1 teaspoon (5 grams) of table salt to 8 ounces (237 milliliters) of warm water can help soothe a sore throat. Gargle the solution and then spit it out.5. Humidify the air. Use a cool-air humidifier to eliminate dry air that may further irritate a sore throat or sit for several minutes in a steamy bathroom.6. Consider lozenges. Lozenges can soothe a sore throat. Because lozenges are a choking hazard for young children, don't give them to children age 4 and younger.7. Avoid irritants. Keep your home free from cigarette smoke and cleaning products that can irritate the throat.8. Treat pain and fever.May take Ibuprofen (Advil, Motrin IB, others) or acetaminophen ( Tylenol, others) to minimize throat pain. If symptom worsen the next few days start taking Augmentin twice a day for 7 days. Call if not effective in3-4 days.R05 CoughComments:Topical [place]: honey, tamara, licorice, cough drops or syrups are locally soothing. Their use is not supported by scientific evidence. It is important that you keep well hydrated. I recommend topical treatments: tamara, licorice, honey, cough drops You may restart on fluticasone if you feel congested.
[2017-12-04 15:43] VITALS: BP 183/99
[2017-12-04] MEDS ORDERED: Acetaminophen TAB* 325 MG PO ONE (15:57)
--- NOTE | 2017-12-05 21:41 | UC ---
Kain Lind Gabriel, scribed for Montana Gloria MD on 12/04/17 at 1555 . HPI Febrile Illness - HPI Summary HPI Summary: This patient is a 67 year old F [place] [facility] [place] chief complaint of a febrile illness that began 3 days ago. The patient rates the pain 8/10 in severity. Patient reports sore throat, productive cough, bilateral ear pain, and post nasal drip. Pt states she has had a persistent cough since and was given Augmentin that helped for a week but the cough has returned. She has been taking Tylenol for her fever; last dose was early this morning. - History of Current Complaint Chief Complaint: UCRespiratory Time Seen by Provider: 12/04/17 15:45 Hx Obtained From: Patient Onset/Duration: Started Days Ago - 3, Still Present Timing: Constant Initial Severity: Severe Current Severity: Severe Pain Intensity: 8 Pain Scale Used: 0-10 Numeric Associated Signs and Symptoms: Cough - bilateral ear pain, post nasal drip, sore throat, Other: - bilateral ear pain, and post nasal drip. - Allergy/Home Medications Allergies/Adverse Reactions: Allergies Allergy/AdvReac Type Severity Reaction Status Date / Time No Known Allergies Allergy Verified 12/04/17 15:43 PMH/Surg Hx/FS Hx/Imm Hx Cardiovascular History: Other Other Cardiovascular History: HLD - Surgical History Surgical History: Yes Surgery Procedure, Year, and Place: 2 c-sect. - Family History Known Family History: Positive: Other - cancer Negative: Cardiac Disease, Hypertension, Diabetes, Renal Disease, Respiratory Disease, Seizure Disorder - Social History Alcohol Use: Rare Substance Use Type: None Smoking Status (MU): Never Smoked Tobacco Review of Systems Constitutional: Fever ENT: Sore Throat, Ear Ache, Other - post nasal drip Respiratory: Cough All Other Systems Reviewed And Are Negative: Yes Physical Exam Triage Information Reviewed: Yes Vital Signs: Initial Vital Signs Temp 101.4 F 12/04/17 15:39 Pulse 94 12/04/17 15:39 Resp 18 12/04/17 15:39 BP 183/99 12/04/17 15:39 Pulse Ox 99 12/04/17 15:39 Vital Signs Reviewed: Yes - Additional Comments Vital signs: Reviewed Gen.: Patient is a well developed and nourished female in no acute distress. Patient is sitting comfortably on the stretcher. Head: Normacephalic and atraumatic Eyes: PERRLA, EOMI x2. Ears: Right ear canal and TM WNL and Left ear canal and TM WNL Nose and mouth: Nose with dry mucosa and clear discharge, Positive pharyngeal erythema with out exudate. Neck: Supple, Positive bilateral submandibular and anterior cervical lymphadenopathy. No JVD Lungs: CTA B/L CVS: S1 & S2 present. No murmurs appreciated. ABDOMEN: Soft NT w/ positive BS. EXT: FROM x 4 NEURO: A+O X 3. Course/Dx - Course Assessment/Plan: This patient is a 67 year old F [place] [facility] [place] chief complaint of a febrile illness that began 3 days ago. The patient rates the pain 8/10 in severity. Patient reports sore throat, productive cough, bilateral ear pain, and post nasal drip. Pt states she has had a persistent cough since and was given Augmentin that helped for a week but the cough has returned. She has been taking Tylenol for her fever; last dose was early this morning. Patient was influenza B positive but negative for strep throat and influenza A. I discussed all the findings and test results with the patient. Pt was instructed to return to the urgent care or go to ER immediately if any of the symptoms return or worsens. Plan of care was discussed with the patient and pt understands and agrees. All questions were answered to patient satisfaction. There were no further complaints or concerns. Patient will be discharged with prescription for Tamiflu and follow up from PCP. The patient is agreeable with this plan. - Febrile Illness Differential Diagnoses: Other: - Pharyngitis, URI, Influenza - Diagnoses Clinic Provider Diagnoses: Influenza Discharge - Discharge Plan Condition: Stable Disposition: HOME Prescriptions: Oseltamivir CAP* [Tamiflu CAP*] 75 mg PO BID #10 cap Patient Education Materials: Influenza (DC) Referrals: Janette Bailon MD [Primary Care Provider] - Additional Instructions: Take medications as instructed Increase your fluid intake Return to the if symptoms worsen The documentation as recorded by the Kain manriquez Gabriel accurately reflects the service I personally performed and the decisions made by me, Montana Gloria MD.
== END 2017-12-04 16:39 | disposition home or self-care (01) ==
LOC: UCEAST 13:30
DX: J11.1 Influenza due to unidentified influenza virus with other respiratory manifestations (principal); E78.5 Hyperlipidemia, unspecified
CPT/HCPCS: 87502; 87651; 99212; A9270-GY; G0463

== ENCOUNTER 2018-10-13 09:18 | Day surgery (SDC) | payer MEDICARE, BC ==
[~2018-10-13 09:18] MED LIST: Acetaminophen TAB* 325 MG PO PRN; Buffered Lidocaine 0.9% SYRIN* 5 ML/SYR SYRINGE INTRADERM ONE
[2018-10-13] MEDS ORDERED: Lidocaine 1%* 5 ML VIAL ONE (11:14)
[2018-10-13] MEDS ORDERED: fentaNYL* 50 MCG/ML 2 ML VIAL (100 MCG VIAL) ONE (11:14)
[2018-10-13] MEDS ORDERED: Midazolam* 1 MG/ML 2 ML VIAL (2 MG) ONE (11:14)
[2018-10-13] MEDS ORDERED: Neomycin/Polymy/Dex OPHTH.OIN* 3.5 GM ONE (11:14)
[2018-10-13] MEDS ORDERED: Cyclopentolate 1% OPTH.SOL* 2 ML BTL ONE (11:14)
[2018-10-13] MEDS ORDERED: Phenylephrine 2.5% OPTH.SOL* 2 ML BTL ONE (11:14)
[2018-10-13] MEDS ORDERED: Tetracaine 0.5% OPTH.SOL 4 ML* 1 DROP BTL ONE (11:15)
[2018-10-13] MEDS ORDERED: Ketorolac 0.5% OPHTH (NF) 0.5 % 5 ML BTL ONE (11:15)
[2018-10-13] MEDS ORDERED: Tropicamide 1% OPTH.SOL* BTL ONE (11:15)
[2018-10-13 12:01] VITALS: BP 143/71
--- NOTE | 2018-10-13 16:43 | OP ---
DATE OF OPERATION: 10/13/18 [facility] DATE OF : 50 SURGEON: Dr. Rodrigo Merida. [employer]OU[employer] ASSEMBLER: None. ANESTHESIA: Topical with intravenous sedation. PRE-OP DIAGNOSIS: Cataract, left eye. POST-OP DIAGNOSIS: Cataract, left eye. OPERATIVE PROCEDURE: Phacoemulsification and cataract extraction with posterior chamber intraocular lens implant, left eye. COMPLICATIONS: None. BLOOD LOSS: None. DESCRIPTION OF PROCEDURE: The patient was brought to the operating room and received a small amount of intravenous sedation. A drop of Tetracaine was placed in her left eye. She was prepped and draped in the usual sterile fashion for ophthalmic surgery and attention was directed to the left eye where a speculum was placed. A paracentesis was created at the 5 o'clock position and 0.1 cc of 1 percent preservative-free Lidocaine was injected into the anterior chamber followed by DisCoVisc. The eye was digitally stabilized while a 2.75 mm keratome was used to create a triplanar clear corneal incision at the 3 o'clock position. A continuous curvilinear capsulorrhexis was created with a cystotome and Utrata forceps. BSS on a cannula was used to hydrodissect the lens from the capsule. Phacoemulsification was performed in a divide-and- conquer technique to create four fragments which were removed. Residual cortical material was removed with irrigation and aspiration. DisCoVisc was used to inflate the capsular bag and an [id number] 21.0 diopter lens was folded and inserted into the capsular bag. DisCoVisc was removed using irrigation and aspiration. BSS on a cannula was used to hydrate the corneal stroma and seal the wound. At the end of the case the pupil was round and the lens was centered. The eye was of normal pressure and the wound was water tight. The speculum was removed and topical Maxitrol ointment was placed on the surface of the eye. The eye was closed, patched and shielded and the patient was sent to the recovery room in stable condition with post operative instructions and follow-up appointment given. [id number] #: [id number] MATA
== END 2018-10-13 12:06 | disposition home or self-care (01) ==
LOC: OREAST 09:18
PROVIDERS: ATTEND Ophthalmology
DX: Z01.818 Encounter for other preprocedural examination (principal); H25.12 Age-related nuclear cataract, left eye; E78.00 Pure hypercholesterolemia, unspecified; I10 Essential (primary) hypertension
CPT/HCPCS: A9270-GY; J2250; J3010; V2632

== ENCOUNTER 2018-11-07 11:50 | Emergency (ER) | payer MEDICARE, BC ==
--- OUTSIDE RECORDS SUMMARY | 2018-11-07 12:41 | XMS REPORT | Continuity of Care Document ---
:1950 External Reference #:[id number] Author Name Vladimir Ang, OD Address [address] [place] [address] Care Team Providers Name Role Phone Heather Sanderson NP Care Team Information [employer] Teacher Unavailable Heather Sanderson NP Primary Care Physician Unavailable Payers Type Date Identification Numbers Payment Provider Subscriber Policy Number: [id number] Medicare [place] Nicole Gamble PayID: [id number] [address] [place] [address] Policy Number: [id number] /BS [place] [employer] Nicole Burr [employer] Number: [id number] [address] [address] PayID: [id number] [place] [address] Advance Directives Description No Information Available Problems Date Description Provider Status Onset: 08/24/2014 Vitreous degeneration Rodrigo Merida M.D. Active Onset: 08/24/2014 Chronic allergic conjunctivitis Rodrigo Merida M.D. Active Onset: 08/24/2014 Refractive amblyopia Rodrigo Merida M.D. Active Onset: 08/24/2014 Cortical senile cataract Rodrigo Merida M.D. Active Onset: 11/08/2016 Presbyopia Rodrigo Merida M.D. Active Family History Date Family Member(s) Problem(s) Comments Father Heart Disease Father due to Prostate Cancer () Father Cancer Mother Heart Disease Mother due to Cancer () - Multiple Myloma Mother Cancer Social History Type Date Description Comments Sex Unknown ETOH Use Rarely consumes alcohol Tobacco Use Start: Unknown Patient has never smoked Smoking Status Reviewed: 10/20/18 Patient has never smoked Allergies, Adverse Reactions, Alerts Description No Known Drug Allergies Medications Medication Date Status Form Strength Qnty SIG Indications Ordering Provider Ketorolac 10/07 Active Solution 0.5% 5ml 1 drops Rodrigo Duncanamine left eye Magnolia, twice a M.D. day Pred Forte 10/07 Active Suspension 1% 10ml 1 drops left eye Magnolia, four M.D. times a day Lipitor 00 Active Tablets Unknown /0000 Zyrtec Allergy Active Capsules Unknown /0000 Hydrochlorothiazide Active Tablets 25mg Take 1 Unknown /0000 Tablet By Mouth Every Day Vigamox 10/07 Hx Solution 0.5% 3ml 1 drop left eye Magnolia, - four M.D. 10/20 day, start drops morning of surgery Zaditor Hx Solution 0.025% 1 drops Unknown /0000 twice a - day 10/02 Immunizations Description No Information Available Vital Signs Date Vital Result Comment 10/14/2018 10:50am Intraocular Pressure Left Eye 16 mmHg 11/14/2017 11:22am Intraocular Pressure Right Eye 16 mmHg Intraocular Pressure Left Eye 16 mmHg 11/08/2016 2:22pm Intraocular Pressure Right Eye 16 mmHg Intraocular Pressure Left Eye 16 mmHg 09/14/2015 3:26pm Intraocular Pressure Right Eye 16 mmHg Intraocular Pressure Left Eye 16 mmHg 08/24/2014 2:50pm Intraocular Pressure Right Eye 19 mmHg Intraocular Pressure Left Eye 17 mmHg Results Description No Information Available Procedures Date Code Description Status 10/13/2018 19004 Extracapsular Cataract Extraction W/Intraocular Lens Completed 10/02/2018 22326 Ophthalmic Biometry By Partial Coherence Interferometry Completed W/Intra 09/07/2018 62250 Eye Exam Est Intermediate Completed 11/14/2017 03252 Refraction Completed 11/14/2017 86245 Eye Exam Est Intermediate Completed 11/08/2016 17523 Ophthalmoscopy Subsequent Completed 11/08/2016 54024 Refraction Completed 11/08/2016 88135 Eye Exam Est Intermediate Completed 09/14/2015 95359 Ophthalmoscopy Subsequent Completed 09/14/2015 57287 Eye Exam Est Comprehensive Completed 08/24/2014 37575 Ophthalmoscopy Subsequent Completed 08/24/2014 71920 Eye Exam Est Comprehensive Completed 06/24/2011 80849 Eye Exam Est Comprehensive Completed 06/24/2011 10657 Refraction Completed 06/24/2011 34035 Ophthalmoscopy Subsequent Completed 09/03/2010 301 Contact Lens Fit $25 Completed 08/03/2010 304 Contact Lens Fit $150 Completed 07/02/2010 42131 Eye Exam Est Comprehensive Completed 06/26/2009 06131 Eye Exam Est Comprehensive Completed 06/08/2008 12698 Ophthalmoscopy Subsequent Completed 06/08/2008 25285 Eye Exam Est Intermediate Completed 05/24/2008 51955 Ophthalmoscopy Initial Completed 05/24/2008 20662 Refraction Completed 05/24/2008 00535 Eye Exam Est Comprehensive Completed 01/19/2007 83080 Refraction Completed 01/19/2007 32762 Eye Exam New Comprehensive Completed Encounters Type Date Location Provider Dx Diagnosis Office Visit 10/02/2018 Main Office Rodrigo Merida, H25.013 Cortical 9:30a M.D. age-related cataract, bilateral H53.021 Refractive amblyopia, right eye Plan of Treatment Future Appointment(s):11/23/2018 9:15 am - Vladimir Ang, OD at [facility]0009/2019 1:30 pm - Vladimir Ang, OD at [facility]10/20/2018 - Vladimir Ang, ODH53.021 Refractive amblyopia, right eyeH25.11 Age-related nuclear cataract, right eyeZ96.1 Presence of intraocular lensFollow up:as scheduled 1 month post op, sooner PRN
--- OUTSIDE RECORDS SUMMARY | 2018-11-07 12:42 | XMS REPORT | Continuity of Care Document ---
:1950 External Reference #:[id number] Author Name CoulterRosanne ibarra Care Team Providers Name Role Phone Janette Bailon MD Primary Care Physician Unavailable Payers Type Date Identification Numbers Payment Provider Subscriber Effective: 2018 Policy Number: [id number] Medicare Nicole Gamble PayID: [id number] [address] [place] [address] Effective: 2017 Policy Number: [id number] BS [employer]ets Nicole Gamble PayID: [id number] [address] [address] [place] [address] Effective: 2011 Policy Number: [id number] BS Gus Gamble Expires: 2017 PayID: [id number] [address] [address] [place] [address] Effective: 2003 Policy Number: [id number] [place] Nicole Gamble Expires: 2011 Group Number: [id number] [facility] [id number] PayID: [id number] [place] [address] Advance Directives Description No Information Available Problems Date Description Provider Status Onset: 07/26/2011 [...] both healthy Siblings 1 1 Brother - Obese,, Amputee, ? 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 /28 hours ten days Ventolin HFA 10/20 Hx Aerosol 108(90Bas 18uni 1 to 2 J20.9 e) ts inhalation Varn, - mcg/Act s every 4 N.P. 01 hours needed Venlafaxine HCL 09/22 Active Caps ER 75mg 30cap Take 1 ER 24HR s Capsule By Varn, Mouth N.P. Every Day Hydrochlorothiazi 02/16 Active Tablets 25mg 30tab Take 1 I10 de s Tablet By Varn, Mouth N.P. Every Day Lipitor 01/21 Active Tablets 10mg 30tab Take 1 E78.5 s Tablet By Varn, Mouth N.P. Every Day Fluticasone 04/15 Active Suspension 50mcg/Act 16gm 1 spray J01.90 Heather Propionate each Varn, nostril N.P. daily as needed Zolpidem Tartrate 07/26 Active Tablets 5mg 30tab 1 tablet s by mouth Varn, as needed N.P. at bedtime Estrace 07/26 Active Cream 0.1mg/GM 42.5u insert one nits syed Deely M.DHansel, once FACP weekly Amoxicillin/Clavu 08/10 Hx Tablets 875-125mg 20tab take 1 tab J02.9 Heather lanate Potassium s by mouth Varn, - twice a N.P. 08/20 day for days Venlafaxine HCL 02/16 Hx Tablets 37.5mg 30tab take 1 Heather s tablet by Varn, - mouth N.P. 08/17 every Amoxicillin/Clavu 11/14 Hx Tablets 875-125mg 14tab take 1 tab J02.9 Zsofia lanate s by mouth Donavon, - twice a [employer] 01/21 day for days Venlafaxine HCL 11/05 Hx Caps ER 75mg 30cap 1 by mouth Heather 24HR s every day Varn, - N.P. 02/16 Meloxicam 07/30 Hx Tablets 7.5mg 30tab 1 by mouth M79.671 s per day Zia Carrasco M.D. 10/13 Venlafaxine HCL 08/04 Hx Caps ER 150mg 90cap 1 by mouth Heather 24HR s every day Maria E, - N.P. 11/05 Ciprofloxacin HCL 05/09 Hx Tablets 250mg 14tab 1 tab by 599.0 Anshul s mouth Shyam, - twice a PASTRY MIXER 05/16 day x's days Azithromycin 08/01 Hx Tablets 250mg 6tabs two tabs 461.9 day onekSyla, - one daily M.D., 08/11 till gone FACP Vicodin 10/19 Hx Tablets 5-300mg 40tab 1-2tabs po s q4-6h Zia Choudhury M.D. 08/01 Venlafaxine HCL 12/05 Hx Caps ER 75mg 90cap take one 24HR s capsule by Maria E, - mouth N.P. 08/04 Azithromycin 04/15 Hx Tablets 250mg 6tabs two tabs 461.9 day oneSkyla, - one daily M.D., 04/25 till gone FACP Ventolin HFA 04/15 Hx Aerosol 108(90Bas 1inha 1 to 2 466.0 e) mcg/ac ler inhalation Skyla, - s every 4 M.D., 12/23 hours as FAC needed Azithromycin 01/01 Hx Tablets 250mg 6tabs two tabs day one, Skyla, - one daily M.D., 01/06 until gone Lipitor 08/27 Hx Tablets 20mg 90tab Take 1 E78.5 s Tablet By Skyla, - Mouth M.D., 01/21 Every Day FAC Levaquin 01/16 Hx Tablets 250mg 7tabs 1 tab by 466.0 mouth Skyla, - every day M.D., 01/25 for 7 days Flovent HFA 01/16 Hx Aerosol 44mcg/Act 10.60 2 puffs 466.0 0gm twice Skyla, - daily M.D., 01/26 Robitussin ac 01/16 Hx Solution 4Oz 1-2 tsp at 466.0 bedtime as Skyla, - needed M.D., 01/21 Azithromycin 01/02 Hx Tablets 250mg 6tabs two tabs day one, Skyla, - one daily M.D., 01/16 till gone Veramyst 01/02 Hx Suspension 27.5mcg/S 1mon 2 sprays pray each Skyla, - nostril M.D., 07/26 daily as needed Effexor XR 12/19 Hx Caps ER 75mg 90cap Take One 24HR s Capsule By Skyla, - Mouth M.D., 12/05 Every Day FAC Multi Vitamin Hx Tablets 1 tablet Unknown Daily /0000 patricia(not - presently 08/19 taking) Co Q 10 Hx Capsules 100mg 2 by mouth Unknown /0000 every day - 11/05 Medications Administered in Office Medication Date Status Form Strength Qnty SIG Indications Ordering Provider Triamcinolone 09/19/ Administered Injection Zaneb (Kenalog) 2014 MD Sadia Immunizations CPT Code Status Date Vaccine Lot # [id number] Given 09/07/2018 Fluzone High Dose 67745 Given 07/23/2017 Fluzone High Dose Q2039 Given 07/20/2016 Flu Vaccine NOS Q2037 Given 08/10/2015 Fluvirin Im 3Yrs And Older Q2035 Given 08/04/2014 Afluria Vaccine 28636 Given 08/01/2014 Zoster (Zostavax) [id number] 16453 Given 08/16/2013 Fluzone High Dose Q2037 Given 08/10/2012 Fluvirin Im 3Yrs And Older 01564 Given 01/02/2012 Tdap - Tetanus/Diptheria/Acellular Pertussis [id number] Q2037 Given 08/16/2011 Fluvirin Im 3Yrs And Older 36645 Given 09/13/2008 Influenza Virus 3Yrs & Over 81609 Given 09/13/2008 Influenza Virus 3Yrs & Over 45111 Given 09/01/2006 Influenza Virus 3Yrs & Over Vital Signs Date Vital Result Comment 10/20/2018 8:39am Height 67.5 inches 5'7.50" Weight 161.00 lb Heart Rate 84 /min BP Systolic 111 mmHg BP Diastolic 76 mmHg Body Temperature 97.7 F O2 % BldC Oximetry 96 % BMI (Body Mass Index) 24.8 kg/m2 10/07/2018 4:11pm Height 67.5 inches 5'7.50" Weight 163.00 lb Heart Rate 83 /min BP Systolic 129 mmHg BP Diastolic 79 mmHg Body Temperature 97.0 F O2 % BldC Oximetry 98 % BMI (Body Mass Index) 25.1 kg/m2 08/18/2018 3:52pm Weight 164.12 lb Heart Rate 74 /min BP Systolic 130 mmHg BP Diastolic 72 mmHg Ejection Fraction 55%-60% 04/03/2018 3:30pm Height 67 inches 5'7" Weight 161.00 lb Heart Rate 86 /min BP Systolic 125 mmHg BP Diastolic 75 mmHg O2 % BldC Oximetry 94 % BMI (Body Mass Index) 25.2 kg/m2 02/16/2018 4:00pm Weight 162.75 lb Heart Rate 88 /min BP Systolic 154 mmHg BP Diastolic 82 mmHg Body Temperature 98.9 F O2 % BldC Oximetry 96 % 01/21/2018 2:18pm Height 67.5 inches 5'7.50" Weight 160.50 lb Heart Rate 72 /min BP Systolic 144 mmHg BP Diastolic 80 mmHg Body Temperature 97.6 F O2 % BldC Oximetry 97 % BMI (Body Mass Index) 24.8 kg/m2 11/14/2017 12:56pm Height 67.5 inches 5'7.50" Weight 161.00 lb Heart Rate 84 /min BP Systolic Sitting 142 mmHg BP Diastolic Sitting 83 mmHg Respiratory Rate 14 /min Body Temperature 96.6 F O2 % BldC Oximetry 96 % BMI (Body Mass Index) 24.8 kg/m2 08/20/2017 3:45pm Height 67.5 inches 5'7.50" Weight 164.75 lb with shoes Heart Rate 82 /min BP Systolic Sitting 144 mmHg LA reg cuff BP Diastolic Sitting 84 mmHg LA reg cuff BMI (Body Mass Index) 25.4 kg/m2 Ejection Fraction 55% - 60% echo 10/25/16 11/13/2016 3:56pm Height 67.5 inches 5'7.50" Weight 163.00 lb Heart Rate 78 /min BP Systolic Sitting 132 mmHg Ra< reg BP Diastolic Sitting 70 mmHg Ra< reg BMI (Body Mass Index) 25.1 kg/m2 Ejection Fraction 55%-60% 10/25/17 echo 11/05/2016 9:18am Height 67.5 inches 5'7.50" Weight 159.00 lb Heart Rate 80 /min BP Systolic Sitting 122 mmHg BP Diastolic Sitting 76 mmHg Respiratory Rate 15 /min Body Temperature 97.9 F O2 % BldC Oximetry 98 % BMI (Body Mass Index) 24.5 kg/m2 10/14/2016 8:30am Height 68 inches 5'8" Weight 163.00 lb with shoes Heart Rate 88 /min BP Systolic Sitting 146 mmHg LA reg cuff BP Diastolic Sitting 88 mmHg LA reg cuff BMI (Body Mass Index) 24.8 kg/m2 10/10/2016 11:48am Height 68 inches 5'8" Weight 155.00 lb Pain Level 5 BMI (Body Mass Index) 23.6 kg/m2 09/11/2016 1:33pm Height 68 inches 5'8" Weight 155.00 lb Heart Rate 78 /min BP Systolic 142 mmHg BP Diastolic 78 mmHg BMI (Body Mass Index) 23.6 kg/m2 07/30/2016 1:51pm Height 68 inches 5'8" Weight 155.00 lb Heart Rate 89 /min BP Systolic 146 mmHg BP Diastolic 90 mmHg BMI (Body Mass Index) 23.6 kg/m2 07/23/2016 1:06pm Height 67 inches 5'7" Weight 160.00 lb Heart Rate 87 /min BP Systolic 131 mmHg BP Diastolic 82 mmHg Body Temperature 98.9 F O2 % BldC Oximetry 98 % BMI (Body Mass Index) 25.1 kg/m2 04/23/2016 2:41pm Weight 158.50 lb Heart Rate 91 /min BP Systolic Sitting 125 mmHg BP Diastolic Sitting 76 mmHg Body Temperature 99.2 F O2 % BldC Oximetry 97 % 09/19/2015 9:40am Height 67 inches 5'7" Weight 157.00 lb BMI (Body Mass Index) 24.6 kg/m2 09/13/2015 3:00pm Height 67.25 inches 5'7.25" Weight 159.00 lb Heart Rate 84 /min BP Systolic Sitting 124 mmHg BP Diastolic Sitting 82 mmHg Respiratory Rate 15 /min O2 % BldC Oximetry 96 % BMI (Body Mass Index) 24.7 kg/m2 08/04/2015 3:30pm Height 67.25 inches 5'7.25" Weight 162.00 lb Heart Rate 71 /min BP Systolic Sitting 135 mmHg BP Diastolic Sitting 83 mmHg Body Temperature 97.9 F O2 % BldC Oximetry 98 % BMI (Body Mass Index) 25.2 kg/m2 05/09/2015 9:02am Height 68 inches 5'8" Weight 159.25 lb Heart Rate 94 /min BP Systolic Sitting 122 mmHg BP Diastolic Sitting 72 mmHg Body Temperature 97.6 F O2 % BldC Oximetry 98 % BMI (Body Mass Index) 24.2 kg/m2 10/25/2014 2:34pm Height 68 inches 5'8" Weight 163.00 lb boots on Heart Rate 78 /min BP Systolic Sitting 138 mmHg BP Diastolic Sitting 80 mmHg BMI (Body Mass Index) 24.8 kg/m2 08/01/2014 3:06pm Height 68 inches 5'8" Weight 156.00 lb Heart Rate 74 /min BP Systolic Sitting 114 mmHg BP Diastolic Sitting 70 mmHg Body Temperature 98.6 F O2 % BldC Oximetry 96 % BMI (Body Mass Index) 23.7 kg/m2 10/05/2013 9:36am Height 68 inches 5'8" Weight 155.00 lb Heart Rate 84 /min BP Systolic 146 mmHg BP Diastolic 88 mmHg BMI (Body Mass Index) 23.6 kg/m2 07/30/2013 2:56pm Height 68 inches 5'8" Weight 158.00 lb Heart Rate 72 /min BP Systolic Sitting 130 mmHg BP Diastolic Sitting 80 mmHg BMI (Body Mass Index) 24.0 kg/m2 02/03/2013 11:16am Height 68 inches 5'8" Weight 158.00 lb Heart Rate 64 /min BP Systolic Sitting 136 mmHg BP Diastolic Sitting 78 mmHg BMI (Body Mass Index) 24.0 kg/m2 07/28/2012 2:55pm Height 68 inches 5'8" Weight 156.00 lb Heart Rate 72 /min BP Systolic Sitting 132 mmHg BP Diastolic Sitting 72 mmHg BMI (Body Mass Index) 23.7 kg/m2 04/15/2012 4:13pm Height 68 inches 5'8" Weight 157.00 lb Heart Rate 84 /min BP Systolic Sitting 126 mmHg BP Diastolic Sitting 72 mmHg Body Temperature 98.7 F BMI (Body Mass Index) 23.9 kg/m2 01/07/2012 4:17pm Height 68 inches 5'8" Weight 157.25 lb Heart Rate 60 /min BP Systolic Sitting 120 mmHg BP Diastolic Sitting 70 mmHg BMI (Body Mass Index) 23.9 kg/m2 08/27/2011 3:55pm Height 68 inches 5'8" Weight 157.00 lb Heart Rate 60 /min BP Systolic Sitting 118 mmHg L BP Diastolic Sitting 74 mmHg L BMI (Body Mass Index) 23.9 kg/m2 07/26/2011 8:35am Height 68 inches 5'8" Weight 153.00 lb Heart Rate 72 /min BP Systolic Sitting 128 mmHg L BP Diastolic Sitting 80 mmHg L BMI (Body Mass Index) 23.3 kg/m2 01/16/2011 11:04am Weight 156.00 lb Heart Rate 80 /min BP Systolic 106 mmHg BP Diastolic 70 mmHg Body Temperature 99.8 F 01/02/2011 10:41am Weight 156.00 lb Heart Rate 82 /min BP Systolic 120 mmHg BP Diastolic 70 mmHg Body Temperature 98.3 F Results Test Date Facility Test Result H/L Range Note CBC Auto Diff 10/08/2018 [facility] White Blood 6.4 10^3/uL N 3.5-10.[address] [place] [address] [phone] Red Blood Count 3.97 10^6/uL Low 4.00-5.40 Hemoglobin 13.3 g/dL N 12.0-16.0 Hematocrit 40 % N 35-47 Mean Corpuscular Volume 100 fL High 80-97 Mean Corpuscular Hemoglobin 34 pg High 27-31 Mean Corpuscular HGB Conc 34 g/dL N 31-36 Red Cell Distribution Width 12 % N 10.5-15 Platelet Count 192 10^3/uL N 150-450 Mean Platelet Volume 10.2 fL N 7.4-10.4 Abs Neutrophils 4.0 10^3/uL N 1.5-7.7 Abs Lymphocytes 1.8 10^3/uL N 1.0-4.8 Abs Monocytes 0.5 10^3/uL N 0-0.8 Abs Eosinophils 0.1 10^3/uL N 0-0.6 Abs Basophils 0 10^3/uL N 0-0.2 Abs Nucleated RBC 0 10^3/uL Granulocyte % 63.0 % Lymphocyte % 28.0 % Monocyte % 7.3 % Eosinophil % 1.4 % Basophil % 0.3 % Nucleated Red Blood Cells % 0.1 Comp Metabolic Panel 10/08/2018 [facility] Sodium 139 mmol/L N 135-[address] [place] [address] [phone] Potassium 4.0 mmol/L N 3.5-5.0 Chloride 101 mmol/L N 101-111 Co2 Carbon Dioxide 33 mmol/L High 22-32 Anion Gap 5 mmol/L N 2-11 Glucose 115 mg/dL High 70-100 Blood Urea Nitrogen 24 mg/dL N 6-24 Creatinine 0.63 mg/dL N 0.51-0.95 BUN/Creatinine Ratio 38.1 High 8-20 Calcium 9.6 mg/dL N 8.6-10.3 Total Protein 6.7 g/dL N 6.4-8.9 Albumin 4.4 g/dL N 3.2-5.2 Globulin 2.3 g/dL N 2-4 Albumin/Globulin Ratio 1.9 N 1-3 Total Bilirubin 0.40 mg/dL N 0.2-1.0 Alkaline Phosphatase 63 U/L N 34-104 Alt 17 U/L N 7-52 Ast 18 U/L N 13-39 Egfr Non- 94.0 >60 Egfr 113.7 >60 1 Order 08/18/2018 [facility] EKG <pending> [address] [place] [address] [place] [address] [phone] Laboratory test 04/04/2018 [facility] Vitamin D, 1,25 50 pg/mL 18-78 [address] [place] [address] [phone] C Reactive Protein < 1.00 mg/L N < 5.00 3 Erythrocyte Sed Rate 10 mm/Hr N 0-40 Cyclic Citrullinated Pep Igg <15.6 U 4 Rheumatoid Factor < 10 IU/mL N <15 Nuclear AB (Naomi) By Ifa Igg <1:80 (Negative) 5 Tick-Borne Panel 04/04/2018 [facility] Babesia Negative Negative PCR Blood [address] [facility] [place] [address] [phone] Babesia ducani Negative Negative Babesia divergens/Mo-1 Negative Negative 6 Anaplasma phagocytophilum Negative Negative Ehrlichia chaffeensis Negative Negative Ehrlichia ewingii/canis Negative Negative Ehrlichia muris-like Negative Negative 7 B. miyamotoi PCR, B Negative Negative 8 Lipid Profile 04/04/2018 [facility] Triglycerides 108 mg/dL 9 (Trig/Chol/HDL) [address] [place] [address] [phone] Cholesterol 164 mg/dL 10 HDL Cholesterol 54.5 mg/dL 11 LDL Cholesterol 88 mg/dL 12 Comp Metabolic Panel 04/04/2018 [facility] Sodium 140 mmol/L N 139-145 [address] [place] [address] [phone] Potassium 4.0 mmol/L N 3.5-5.0 Chloride 102 mmol/L N 101-111 Co2 Carbon Dioxide 31 mmol/L N 22-32 Anion Gap 7 mmol/L N 2-11 Glucose 92 mg/dL N 70-100 Blood Urea Nitrogen 14 mg/dL N 6-24 Creatinine 0.51 mg/dL N 0.51-0.95 BUN/Creatinine Ratio 27.5 High 8-20 Calcium 9.6 mg/dL N 8.6-10.3 Total Protein 6.4 g/dL N 6.4-8.9 Albumin 4.1 g/dL N 3.2-5.2 Globulin 2.3 g/dL N 2-4 Albumin/Globulin Ratio 1.8 N 1-3 Total Bilirubin 0.70 mg/dL N 0.2-1.0 Alkaline Phosphatase 79 U/L N 34-104 Alt 29 U/L N 7-52 Ast 22 U/L N 13-39 Egfr Non- 120.3 >60 Egfr 154.7 >60 13 Laboratory 04/04/2018 [facility] TSH (Thyroid Stim 0.97 N 0.34 -5.60 [address] Horm) mcIU/[place] [address] [phone] Lipid Profile 01/03/2018 [facility] Triglycerides 73 mg/dL 15 (Trig/Chol/HDL [address] ) [place] [address] [phone] Cholesterol 136 mg/dL 16 HDL Cholesterol 45.6 mg/dL 17 LDL Cholesterol 76 mg/dL 18 Comp Metabolic Panel 01/03/2018 [facility] Sodium 141 mmol/L N [address] [place] [address] [phone] Potassium 4.3 mmol/L N 3.5-5.0 Chloride 105 mmol/L N 101-111 Co2 Carbon Dioxide 32 mmol/L N 22-32 Anion Gap 4 mmol/L N 2-11 Glucose 87 mg/dL N 70-100 Blood Urea Nitrogen 17 mg/dL N 6-24 Creatinine 0.58 mg/dL N 0.51-0.95 BUN/Creatinine Ratio 29.3 High 8-20 Calcium 9.2 mg/dL N 8.6-10.3 Total Protein 6.5 g/dL N 6.4-8.9 Albumin 4.0 g/dL N 3.2-5.2 Globulin 2.5 g/dL N 2-4 Albumin/Globulin Ratio 1.6 N 1-3 Total Bilirubin 0.50 mg/dL N 0.2-1.0 Alkaline Phosphatase 92 U/L N 34-104 Alt 18 U/L N 7-52 Ast 20 U/L N 13-39 Egfr Non- 103.7 >60 Egfr 133.4 >60 19 Laboratory test 01/03/2018 [facility] TSH (Thyroid 1.26 mcIU/mL N 0.34-5.[address] Stim Horm) [place] [address] [phone] Rapid Influenza 12/04/2017 [facility] Influenza A NEGATIVE Negative 20 A & B Molecular [address] [place] [address] [phone] Influenza B Molecular POSITIVE Abnormal Negative Laboratory test 12/04/2017 [facility] Rapid Strep Negative Negative [address] [place] [address] [phone] Laboratory test 11/14/2017 [employer] Rapid Group A neg finding Strep Laboratory test 11/05/2016 [facility] Cytology SEE RESULT [address] [place] [address] [phone] HPV Rna Ww/Reflex Genotype Negative N Negative 23 CBC Auto Diff 10/16/2016 [facility] White Blood 3.6 10^3/uL N 3.5-10.[address] [place] [address] [phone] Red Blood Count 4.03 10^6/uL N 4.0-5.4 Hemoglobin 13.1 g/dL N 12.0-16.0 Hematocrit 39 % N 35-47 Mean Corpuscular Volume 98 fL High 80-97 Mean Corpuscular Hemoglobin 33 pg High 27-31 Mean Corpuscular HGB Conc 33 g/dL N 31-36 Red Cell Distribution Width 12 % N 10.5-15 Platelet Count 180 10^3/uL N 150-450 Mean Platelet Volume 10 um3 N 7.4-10.4 Abs Neutrophils 2.3 10^3/uL N 1.5-7.7 Abs Lymphocytes 1.0 10^3/uL N 1.0-4.8 Abs Monocytes 0.2 10^3/uL N 0-0.8 Abs Eosinophils 0.1 10^3/uL N 0-0.6 Abs Basophils 0 10^3/uL N 0-0.2 Abs Nucleated RBC 0 10^3/uL N Granulocyte % 64.0 % N 38-83 Lymphocyte % 26.8 % N 25-47 Monocyte % 6.8 % N 1-9 Eosinophil % 1.5 % N 0-6 Basophil % 0.9 % N 0-2 Nucleated Red Blood Cells % 0 N Comp Metabolic Panel 10/16/2016 [facility] Sodium 140 mmol/L N 133-[address] [place] [address] [phone] Potassium 4.0 mmol/L N 3.5-5.0 Chloride 103 mmol/L N 101-111 Co2 Carbon Dioxide 33 mmol/L High 22-32 Anion Gap 4 mmol/L N 2-11 Glucose 84 mg/dL N 70-100 Blood Urea Nitrogen 16 mg/dL N 6-24 Creatinine 0.66 mg/dL N 0.51-0.95 BUN/Creatinine Ratio 24.2 High 8-20 Calcium 9.2 mg/dL N 8.6-10.3 Total Protein 6.6 g/dL N 6.4-8.9 Albumin 4.1 g/dL N 3.2-5.2 Globulin 2.5 g/dL N 2-4 Albumin/Globulin Ratio 1.6 N 1-3 Total Bilirubin 0.60 mg/dL N 0.2-1.0 Alkaline Phosphatase 93 U/L N 34-104 Alt 18 U/L N 7-52 Ast 18 U/L N 13-39 Egfr Non- 89.6 N >60 Egfr 115.2 N >60 24 Laboratory test finding 10/16/2016 [facility] Cortisol 11.26 ?g/ dL N [address] [place] [address] [phone] Magnesium 2.2 mg/dL N 1.9-2.7 T3 Free 2.60 pg/mL N 2.5-3.9 Free T4 (Free Thyroxine) 0.75 ng/dL N 0.61-1.12 TSH (Thyroid Stim Horm) 1.21 mcIU/mL N 0.34-5.60 Vitamin D 1,25 10/16/2016 [facility] Vitamin D 62.1 ng/mL High 30-50 And Vitamin D,[address] Total 25(Oh) [place] [address] [phone] Vitamin D, 1,25 Dihydroxy 66 pg/mL N 18-78 26 Laboratory test 10/16/2016 [facility] Vitamin B12 456 pg/mL N 180-484 [address] [place] [address] [phone] Lipid Profile 10/16/2016 [facility] Triglycerides 78 mg/dL N 28 (Trig/Chol/HDL) [address] [place] [address] [phone] Cholesterol 143 mg/dL N 29 HDL Cholesterol 48.4 mg/dL N 30 LDL Cholesterol 79 mg/dL N 31 CBC Auto Diff 07/16/2016 [facility] White Blood 3.8 10^3/uL N 3.5-10.[address] [place] [address] [phone] Red Blood Count 3.98 10^6/uL Low 4.0-5.4 Hemoglobin 13.3 g/dL N 12.0-16.0 Hematocrit 39 % N 35-47 Mean Corpuscular Volume 99 fL High 80-97 Mean Corpuscular Hemoglobin 33 pg High 27-31 Mean Corpuscular HGB Conc 34 g/dL N 31-36 Red Cell Distribution Width 12 % N 10.5-15 Platelet Count 166 10^3/uL N 150-450 Mean Platelet Volume 11 um3 High 7.4-10.4 Abs Neutrophils 2.4 10^3/uL N 1.5-7.7 Abs Lymphocytes 1.0 10^3/uL N 1.0-4.8 Abs Monocytes 0.3 10^3/uL N 0-0.8 Abs Eosinophils 0 10^3/uL N 0-0.6 Abs Basophils 0.1 10^3/uL N 0-0.2 Abs Nucleated RBC 0.01 10^3/uL N Granulocyte % 63.6 % N 38-83 Lymphocyte % 27.0 % N 25-47 Monocyte % 6.9 % N 1-9 Eosinophil % 1.2 % N 0-6 Basophil % 1.3 % N 0-2 Nucleated Red Blood Cells % 0.4 N Laboratory test 07/16/2016 [facility] C Reactive < 1.00 mg/L N < 5.00 [address] [place] [address] [phone] Laboratory test 07/16/2016 [facility] Lyme Disease Negative N Negative [address] [place] [address] [phone] Anti Nuclear Antibody 0.2 U N 35 Hla B27 07/16/2016 [facility] Hla B27 Negative N [address] [place] [address] [phone] Hla B27 Interp See Comment N 37 Laboratory test 07/16/2016 [facility] Erythrocyte Sed 12 mm/Hr N 0-40 [address] [place] [address] [phone] Rheumatoid Factor <15 IU/mL N <15 39 Basic Metabolic Panel 04/24/2016 [facility] Sodium 138 mmol/L N 133-[address] [place] [address] [phone] Potassium 4.4 mmol/L N 3.5-5.0 Chloride 102 mmol/L N 101-111 Co2 Carbon Dioxide 31 mmol/L N 22-32 Anion Gap 5 mmol/L N 2-11 Glucose 89 mg/dL N 70-100 Blood Urea Nitrogen 19 mg/dL N 6-24 Creatinine 0.63 mg/dL N 0.51-0.95 BUN/Creatinine Ratio 30.2 High 8-20 Calcium 9.7 mg/dL N 8.6-10.3 Egfr Non- 94.8 N >60 Egfr 122.0 N >60 40 CBC Auto Diff 04/24/2016 [facility] White Blood 5.2 10^3/uL N 3.5-10.[address] [place] [address] [phone] Red Blood Count 4.14 10^6/uL N 4.0-5.4 Hemoglobin 13.5 g/dL N 12.0-16.0 Hematocrit 41 % N 35-47 Mean Corpuscular Volume 98 fL High 80-97 Mean Corpuscular Hemoglobin 33 pg High 27-31 Mean Corpuscular HGB Conc 33 g/dL N 31-36 Red Cell Distribution Width 13 % N 10.5-15 Platelet Count 174 10^3/uL N 150-450 Mean Platelet Volume 11 um3 High 7.4-10.4 Abs Neutrophils 3.2 10^3/uL N 1.5-7.7 Abs Lymphocytes 1.6 10^3/uL N 1.0-4.8 Abs Monocytes 0.3 10^3/uL N 0-0.8 Abs Eosinophils 0.1 10^3/uL N 0-0.6 Abs Basophils 0 10^3/uL N 0-0.2 Abs Nucleated RBC 0 10^3/uL N Granulocyte % 62.1 % N 38-83 Lymphocyte % 30.1 % N 25-47 Monocyte % 6.2 % N 1-9 Eosinophil % 1.2 % N 0-6 Basophil % 0.4 % N 0-2 Nucleated Red Blood Cells % 0 N Laboratory 04/24/2016 [facility] TSH (Thyroid Stim 1.22 N 0.34 -5.60 41 test finding [address] Horm) ?IU/[place] [address] [phone] Lipid Profile 07/27/2015 [facility] Triglycerides 80 mg/dL N 42 (Trig/Chol/HDL [address] ) [place] [address] [phone] Cholesterol 152 mg/dL N 43 HDL Cholesterol 53.2 mg/dL N 44 LDL Cholesterol 83 mg/dL N 45 Laboratory test 07/27/2015 [facility] Glucose 88 mg/dL N 70- [address] [place] [address] [phone] Ua Routine 05/09/2015 [facility] Ua Specific [address] Ua PH 9 Ua Color yellow Ua Appera clear Ua WBC + Ua Protein neg Ua Glucose neg Ua Ketones neg Ua Bilirubin neg Ua Urobilinogen normal Ua Nitrite neg Ua Occult Blood trace Laboratory test 08/01/2014 [facility] Cytology RUN DATE: [address] 08/02/ <[place] [address] NOTE> [phone] HPV High Risk 08/01/2014 [facility] Human See Comment N [address] [place] [address] Source [phone] HPV High Risk Type 16, PCR Negative N Negative HPV High Risk Type 18, PCR Negative N Negative HPV Other Risk types Negative N Negative 48 Lipid Profile 07/26/2014 [facility] Triglycerides 110 mg/dL N 49, 50 (Trig/Chol/HDL) [address] [place] [address] [phone] Cholesterol 152 mg/dL N 51 HDL Cholesterol 51.0 mg/dL N 52 LDL Cholesterol 79 mg/dL N 53 Comp Metabolic Panel 07/26/2014 [facility] Sodium 140 mmol/L N 133-[address] [place] [address] [phone] Potassium 4.1 mmol/L N 3.7-5.6 Chloride 102 mmol/L N 101-111 Co2 Carbon Dioxide 34 mmol/L High 22-32 Anion Gap 4 mmol/L N 2-11 Glucose 81 mg/dL N 70-100 Blood Urea Nitrogen 13 mg/dL N 6-24 Creatinine 0.63 mg/dL N 0.51-0.95 BUN/Creatinine Ratio 20.6 High 8-20 Calcium 9.5 mg/dL N 8.6-10.3 Total Protein 6.7 g/dL N 6.4-8.9 Albumin 4.3 g/dL N 3.2-5.2 Globulin 2.4 g/dL N 2-4 Albumin/Globulin Ratio 1.8 N 1-3 Total Bilirubin 0.80 mg/dL N 0.2-1.0 Alkaline Phosphatase 64 U/L N 34-104 Alt 20 U/L N 7-52 Ast 21 U/L N 13-39 Egfr Non- 95.4 N >60 Egfr 122.7 N >60 54 Laboratory test 07/26/2014 [facility] TSH (Thyroid 1.28 N 0.34 -5.60 [address] Stimulating IU/[place] [address] Horm) [phone] Laboratory test 08/04/2013 [facility] TSH (Thyroid 1.05 0.34- 5.[address] Stimulating miu/[place] [address] Horm) [phone] Comp Metabolic 08/04/2013 [facility] Sodium 140 133-[address] mmol/[place] [address] [phone] Potassium 4.1 mmol/L 3.5-5.0 Chloride 106 mmol/L [...] Egfr Non- 101.3 >60 Egfr 130.3 >60 56 Lipid Profile 08/04/2013 [facility] Triglycerides 43 mg/dL 40 -200 (Trig/Chol/HDL) [address] [place] [address] [phone] Cholesterol 145 mg/dL Less than 200 HDL Cholesterol 54 mg/dL 40-60 57 Cholesterol/HDL Ratio 2.7 Average 1-4.44 LDL Cholesterol 82.4 Less Than 100 58 Laboratory 08/04/2013 [facility] Hepatitis C Nonreactive Nonreactive [address] [place] [address] [phone] Laboratory 08/04/2012 [facility] TSH (Thyroid 1.44 MIU/ML 0.34-5.60 60 test finding [address] [place] [address] Horm) [phone] Comp 08/04/2012 [facility] Sodium 141 mmol/L 133-[address] [place] [address] [phone] Potassium 4.1 mmol/L 3.5-5.0 Chloride 105 mmol/L [...] 1.5 1-3 Total Bilirubin 1.0 mg/dL 0.1-1.0 61 Alkaline Phosphatase 68 U/L 30-110 Alt 27 U/L 14-54 Ast 27 U/L 12-42 Egfr Non- 85.1 >60 Egfr 109.4 >60 62 Lipid Profile 08/04/2012 [facility] Triglycerides 77 mg/dL 40 -200 (Trig/Chol/HDL) [address] [place] [address] [phone] Cholesterol 147 mg/dL Less than 200 63 HDL Cholesterol 54 mg/dL 40-60 64 Cholesterol/HDL Ratio 2.7 AVERAGE 1-4.44 LDL Cholesterol 77.6 mg/dL Less Than 100 Laboratory test 08/04/2012 [facility] Varicella-Zoster IgG Positive [address] [place] [address] [phone] Ua Routine 07/28/2012 [employer] [facility] In House Ua Specific [place] 1.015 Ua PH 6 Ua Color yellow Ua Appera clear Ua WBC trace Ua Protein neg Ua Glucose neg Ua Ketones neg Ua Bilirubin small Ua Urobilinogen neg Ua Nitrite neg Ua Occult Blood neg Laboratory test 07/28/2012 [facility] Cytology [address] <SEE NOTE> [place] [address] [phone] Liver Function 10/23/2011 [facility] Total 7.2 GM/DL 6.2- Panel [facility] Protein 8.1 [place] [address] [phone] Albumin 4.4 GM/DL 3.2-5.2 Globulin 2.8 GM/DL 2-4 Albumin/Globulin Ratio 1.6 1-3 Bilirubin Total 1.0 mg/dL 0.4-1.5 67 Bilirubin Direct 0.1 mg/dL 0.1-0.5 Indirect Bilirubin 0.9 mg/dL 0.3-1.0 68 Alkaline Phosphatase 70 U/L 30-110 Alt (SGPT) 29 U/L 14-54 Ast (Sgot) 28 U/L 12-42 Lipid Profile 10/23/2011 [facility] Triglyceride 77 mg/dL 40- 200 (Trig/Chol/HDL) [address] [place] [address] [phone] Cholesterol 171 mg/dL Less Than 200 69 High Density Lipoprotein 56 mg/dL 40-60 70 Cholesterol/HDL Ratio 3.05 AVERAGE 1-4.44 Low Density Lipoprotein 100 mg/dL Less Than 100 71 Lipid Profile 08/13/2011 [facility] Triglyceride 98 mg/dL 40- 200 (Trig/Chol/HDL) [address] [place] [address] [phone] Cholesterol 253 mg/dL High Less Than 200 72 High Density Lipoprotein 58 mg/dL 40-60 73 Low Density Lipoprotein 175 mg/dL High Less Than 100 74 Cholesterol/HDL Ratio 4.36 AVERAGE 1-4.44 Comp Metabolic Panel 08/13/2011 [facility] Sodium 141 mmol/L 135-[address] [place] [address] [phone] Potassium 4.4 mmol/L 3.5-5.0 Chloride 104 mmol/L 101-111 Co2 (Carbon Dioxide) 32.0 mmol/L 22-32 Anion Gap 5.0 mmol/L 2-11 75 Glucose 81 mg/dL 70-100 BUN 16 mg/dL 6-24 Creatinine 0.7 mg/dL 0.50-1.40 One Over Creatinine 1.42 BUN/Creatinine Ratio 22.9 High 8-20 Calcium 9.6 mg/dL 8.1-9.9 Total Protein 6.8 GM/DL 6.2-8.1 Albumin 4.0 GM/DL 3.2-5.2 Globulin 2.8 GM/DL 2-4 Albumin/Globulin Ratio 1.4 1-3 Bilirubin Total 1.1 mg/dL 0.4-1.5 76 Alkaline Phosphatase 57 U/L 30-110 Alt (SGPT) 23 U/L 14-54 Ast (Sgot) 27 U/L 12-42 eGFR Non- 85.4 > 60 eGFR 109.8 > 60 77 Laboratory test 08/13/2011 [facility] TSH 1.70 MIU/ML 0.34- 5.[address] [place] [address] [phone] Laboratory test 07/26/2011 [facility] Cytology [address] [place] [address] ---- <[place] [address] NOTE> [phone] 1 Because ethnic data is not always readily [...] 15-29 5 Kidney failure <15 (or dialysis) 2 ADDITIONAL INFORMATION This test was developed and its performance characteristics determined by [facility] in a manner consistent with CLIA requirements. This test has not been cleared or approved by the U.S. Food and Drug Administration. Test Performed by: [facility] - [address] [place] [address] 3 Acute inflammation: >10.00 4 REFERENCE VALUE <20.0 (Negative) Test Performed by: [facility] - [address] [address] 5 <1:80 (Negative) REFERENCE VALUE <1:80 (Negative) Test Performed by: [facility] - [address] [address] 6 ADDITIONAL INFORMATION This test was developed and its performance characteristics determined by [facility] in a manner consistent with CLIA requirements. This test has not been cleared or approved by the U.S. Food and Drug Administration. 7 ADDITIONAL INFORMATION This test was developed and its performance characteristics determined by [facility] in a manner consistent with CLIA requirements. This test has not been cleared or approved by the U.S. Food and Drug Administration. 8 ADDITIONAL INFORMATION This test was developed and its performance characteristics determined by [facility] in a manner consistent with CLIA requirements. This test has not been cleared or approved by the U.S. Food and Drug Administration. Test Performed by: [facility] - [address] [address] 9 Desirable: <150 Borderline High: 150-199 High: 200-499 Very High: >500 10 Desirable: <200 Borderline High: 200-239 High: >239 11 Low: <40 Desirable: 40-60 High: >60 12 Desirable: <100 Near Optimal: 100-129 Borderline High: 130-159 High: 160-189 Very High: >189 13 Because ethnic data is not always readily [...] 15-29 5 Kidney failure <15 (or dialysis) 14 FASTING 10 HOUR 15 Desirable: <150 Borderline High: 150-199 High: 200-499 Very High: >500 16 Desirable: <200 Borderline High: 200-239 High: >239 17 Low: <40 Desirable: 40-60 High: >60 18 Desirable: <100 Near Optimal: 100-129 Borderline High: 130-159 High: 160-189 Very High: >189 19 Because ethnic data is not always [...] 5 Kidney failure <15 (or dialysis) 20 Supervisor Channel Process: [id number] 21 Supervisor Channel Process: [id number] 22 SEE RESULT BELOW Name: NICOLE GAMBLE : [address]: Heather Sanderson NP Acct: [id number] Unit: [id number] AGE: 66 Location: [facility] Re11/05/16 SEX: F Status: REG REF SPEC: [id number] TYRELL: 11/05/16-[address] [facility] [address]: Heather Sanderson NP REQ: [id number] RECD: 11/05/16395 STATUS: SOUT _ ORDERED: IMAGE ANALYSIS, HPV/Thin Prep, HPV 16/18 GENE COMMENTS: [id number] FINAL DIAGNOSIS Negative for Intraepithelial lesion or [...] and 68. Signed (signature on file) NEGIN Gregorio([facility]) 11/06 1319 This Pap test was evaluated with the assistance of the RouxbePrep Test Imaging System. Due to cytologic findings at the turbo operator microscope, comprehensive manual rescreening by a Retirement Plan Counselor may be required. The Pap Smear is [...] performed at Main Lab DEPARTMENT OF PATHOLOGY, [address] [place] [address] RUN DATE: 11/06/16 [facility] LIVE PAGE 1 Patient: NICOLE GAMBLE Leno [id number] (Continued) Neo Espinoza M.D. Director [facility] # [id number] 23 The high-risk HPV types detected by the assay include: 16, 18, 31, 33, 35, 39, 45, 51, 52, 56, 58, 59, 66, and 68. 24 Because ethnic data is not always readily [...] 15-29 5 Kidney failure <15 (or dialysis) 25 AM 8.7-22.4 PM <10 26 ADDITIONAL INFORMATION This test was developed and its performance characteristics determined by [facility] in a manner consistent with CLIA requirements. This test has not been cleared or approved by the U.S. Food and Drug Administration. Test Performed by: [place] [address] Exhibit Carpenter: Toño Soriano II, M.D., Ph.D. 27 Normal Range 180 to 914 Indeterminate Range 145 to 180 Deficient Range <145 28 Desirable <150 Borderline high 150-199 High 200-499 Very High >500 29 Desirable <200 Borderline high 200-239 High >239 30 Low <40 Desirable: 40-60 High: >60 31 Desirable: <100 mg/dL Near Optimal: 100-129 mg/dL Borderline High: 130-159 mg/dL High: 160-189 mg/dL Very High: >189 mg/dL 32 PLEASE FAX RESULTS TO [phone] Acute inflammation: >10.00 34 Serologic response to B. burgdorferi infection is not detected, but cannot rule out early infection during which low or undetectable antibody levels to B. burgdorferi may be present. If clinically indicated, a new serum specimen should be submitted in 7-14 days. Test Performed by: [place] [address] Exhibit Carpenter: Toño Soriano II, M.D., Ph.D. 35 REFERENCE VALUE <=1.0 (Negative) Test Performed by: [address] [address] Exhibit Carpenter: Toño Soriano II, M.D., Ph.D. 36 REFERENCE VALUE Not Applicable 37 RESULT: HLA-B27 antigen was not detected. ADDITIONAL INFORMATION Method: Flow Cytometry Performing Laboratory CLIA# [id number] Test Performed by: [address] [address] Exhibit Carpenter: Toño Soriano II, M.D., Ph.D. 38 PLEASE FAX RESULTS TO [phone] Test Performed by: [address] [address] Exhibit Carpenter: Toño Soriano II, M.D., Ph.D. 40 Because ethnic data is not always [...] 5 Kidney failure <15 (or dialysis) 41 [id number] 42 Desirable <150 Borderline high 150-199 High 200-499 Very High >500 43 Desirable <200 Borderline high 200-239 High >239 44 Low <40 Desirable: 40-60 High: >60 45 Desirable: <100 mg/dL Near Optimal: 100-129 mg/dL Borderline High: 130-159 mg/dL High: 160-189 mg/dL Very High: >189 mg/dL 46 RUN DATE: 08/02/14 [facility] LIVE PAGE 1 RUN TIME: [address] [place], [place] [address] Specimen Inquiry Name: NICOLE GAMBLE Leno : [address]: Heather Sanderson NP Acct: [id number] Unit: [id number] AGE: 63 Location: [facility] Re08/01/14 SEX: F Status: REG REF SPEC: [id number] TYRELL: 08/01/14-[address]: Heather Sanderson NP REQ: [id number] RECD: 08/01/14 STATUS: SOUT _ ORDERED: IMAGE ANALYSIS, HPV/Thin Prep FINAL DIAGNOSIS Negative for Intraepithelial lesion or Malignancy COMMENTS: Specimen sent to [facility] in [place], [place] on 08/02/14 by YANELIS at 1507. Results will be reported separately. [...] System. Due to cytologic findings at the turbo operator microscope, comprehensive manual rescreening by a Retirement Plan Counselor may be required. The Pap Smear is [...] performed at Main Lab DEPARTMENT OF PATHOLOGY, [address] [place] [address] Neo Espinoza M.D. Director [facility] # [id number] 47 RESULT: Ectocervical/Endocervical 48 The following Other High Risk HPV types were not detected: 31, 33, 35, 39, 45, 51, 52, 56, 58, 59, 66, and 68 Test Performed by: [address] [address] Exhibit Carpenter: Nick Torrez M.D. 49 FASTING 50 Desirable <150 Borderline high 150-199 High 200-499 Very High >500 51 Desirable <200 Borderline high 200-239 High >239 52 Low <40 Desirable: 40-60 High: >60 53 Desirable <100 Near Optimal 100-129 Borderline high 130-159 High 160-189 Very High >189 54 Because ethnic data is not always readily [...] 15-29 5 Kidney failure <15 (or dialysis) 55 FASTING 56 Because ethnic data is not always [...] 5 Kidney failure <15 (or dialysis) 57 HDL Interpretation: Undesirable: High Risk: Less than 40 mg/dL Desirable: Low Risk: Greater than 60 mg/dL 58 LDL Interpretation: Low Risk Optimal Level: LDL Less than 100 mg/dL Near or Above Optimal: LDL 100-129 mg/dL Borderline High Risk: LDL 130-159 mg/dL High Risk: LDL 160-189 mg/dL Very High Risk: LDL Greater than 189 mg/dL 59 PT IS FASTING 60 PATIENT IS FASTING 61 A metabolite of Naproxen, O-desmethylnaproxen, has been shown to interfere with the [place]rass[place] method for measuring total bilirubin. Samples from patients who have taken Naproxen have shown spurious elevation in total bilirubin levels. 62 Because ethnic data is not always readily [...] 15-29 5 Kidney failure <15 (or dialysis) 63 Desirable: Less than 200 MG/DL Borderline-High Risk: 200-239 MG/DL High-Risk: 240 MG/DL and over 64 HDL Interpretation: Undesirable: High Risk: Less than 40 MG/DL Desirable: Low Risk: Greater than 60 MG/DL 65 -- REFERENCE VALUE -- Negative Test Performed by: [place] [address] Exhibit Carpenter: Owen Ta III, M.D. R 66 ---- RUN DATE: 07/29/12 [facility] NMI LIVE PAGE 1 RUN TIME: 1423 Specimen Inquiry RUN USER: INTERFACE -- Name: NICOLE GAMBLE Status: REG REF Re07/28/12 Age/Sex: 61/F Unit#: [id number] Location: [facility]. : 50 -- Specimen: [id number] [place] Spec Date:07/28/12-[address]: Heather Sanderson [facility] Spec Type: CYTOLOGY Received:07/29/12-1215 Copies to: SOURCE [...] was evaluated with the assistance of the RouxbePrep Pap Test Imaging System. The Pap Smear [...] 142 3 -- -- DEPARTMENT OF PATHOLOGY, [address] [place] [address] [facility] Permit #[id number] Neo Espinoza M.D. Director Carline Fernandez M.D. Control Clerk Subassembly Dir kurt -- 67 A metabolite of Naproxen, O-desmethylnaproxen, has been shown to interfere with the [place] method for measuring total bilirubin. Samples from patients who have taken Naproxen have shown spurious elevation in total bilirubin levels. 68 Please note updated reference range, effective 05/24/10 69 CHOLESTEROL INTERPRETATION: Desirable: Less than 200 MG/DL Borderline-High Risk: 200-239 MG/DL High-Risk: 240 MG/DL and over 70 HDL INTERPRETATION: Undesirable: High Risk: Less than 40 MG/DL Desirable: Low Risk: Greater than 60 MG/DL 71 LDL INTERPRETATION: Low Risk Optimal Level: LDL Less than 100 MG/DL Near or Above Optimal: LDL 100-129 MG/DL Borderline High Risk: LDL 130-159 MG/DL High Risk: LDL 160-189 MG/DL Very High Risk: LDL Greater than 189 MG/DL 72 CHOLESTEROL INTERPRETATION: Desirable: Less than 200 MG/DL Borderline-High Risk: 200-239 MG/DL High-Risk: 240 MG/DL and over 73 HDL INTERPRETATION: Undesirable: High Risk: Less than 40 MG/DL Desirable: Low Risk: Greater than 60 MG/DL 74 LDL INTERPRETATION: Low Risk Optimal Level: LDL Less than 100 MG/DL Near or Above Optimal: LDL 100-129 MG/DL Borderline High Risk: LDL 130-159 MG/DL High Risk: LDL 160-189 MG/DL Very High Risk: LDL Greater than 189 MG/DL 75 Anion gap measurement may be of limited value in the presence of any alkalosis, especially in a combined acid base disorder. . 76 A metabolite of Naproxen, O-desmethylnaproxen, has been shown to interfere with the J[place]rassik-[place] method for measuring total bilirubin. Samples from patients who have taken Naproxen have shown spurious elevation in total bilirubin levels. 77 Because ethnic data is not always readily [...] 15-29 5 Kidney failure <15 (or dialysis) 78 ---- RUN DATE: 07/29/11 [facility] NMI LIVE PAGE 1 RUN TIME: 1244 Specimen Inquiry RUN USER: INTERFACE -- [id number] Status: REG REF Re07/26/11 Age/Sex: 60/F Unit#: [id number] Location: [facility] : 50 -- Specimen: [id number] SOUT Spec Date: 07/26/[address]: Heather plunkett [facility] Spec Type: CYTOLOGY Received: 07/29/11-1048 Copies to: [...] 124 3 -- -- DEPARTMENT OF PATHOLOGY, [address] [place] [address] [facility] Permit #[id number] Jose Preston M.D. Control Clerk Subassembly Dir kurt -- Procedures Date Code Description Status 08/18/2018 33747 EKG Tracing & Interpretation Completed 06/22/2018 [id number] Mammogram Completed 08/20/2017 01727 EKG Tracing & Interpretation Completed 06/20/2017 [id number] Mammogram Completed 02/26/2017 [id number] Colonoscopy Completed 12/24/2016 [id number] Bone Mineral Density Test Completed 11/07/2016 03488 ECHO Stress Test Incl Perf Contiuous ekg Monitoring Completed W/Phys Superv 10/25/2016 99368 ECHO Transthoracic, Real-Time 2D With Doppler And Completed Color Flow 10/19/2016 51625 Mobile Cardiovascular Telemetry Over 24 HR Up To 30 Completed Days 10/14/2016 32787 EKG Tracing & Interpretation Completed 06/19/2016 [id number] Mammogram Completed 04/25/2016 02602 Holter Monitor Review (24 hr) review & interp only Completed 04/24/2016 75988 ECG Monitor/Recording W/Visual Superimposition Completed Scanning 04/23/2016 96920 EKG Tracing & Interpretation Completed 09/19/2015 51060 Inject/Drain Joint/Bursa Major W/O US Completed 05/15/2015 [id number] Mammogram Completed 05/02/2014 [id number] Mammogram Completed 11/18/2013 15630 Rad Shoulder Comp, Min. 2 Views Completed 10/19/2013 26437 Rad Shoulder Comp, Min. 2 Views Completed 10/05/2013 85320 Rad Shoulder Comp, Min. 2 Views Completed 10/05/2013 96159 Closed trtmt prox humeral fx Completed 05/18/2013 [id number] Mammogram Completed 03/19/2013 00056 Rad Exam; Wrist, Comp, Min 3 Views Completed 05/08/2012 [id number] Mammogram Completed 05/07/2011 [id number] Mammogram Completed 05/10/2010 86126 Rad Exam; Wrist Limited, 2 Views Completed 05/03/2010 [id number] Mammogram Completed 04/30/2010 97244 Rad Exam; Wrist Limited, 2 Views Completed 04/05/2010 02160 CLST TRMT Distal Radial FX Completed 05/02/2009 [id number] Mammogram Completed 10/10/2008 [id number] Mammogram Completed 05/23/2008 973921730 Bone Mineral Density Test Completed 04/08/2008 11287124 Mammogram Completed 09/17/2007 [id number] Mammogram Completed 05/08/2007 50182 EKG Tracing & Interpretation Completed 05/08/2007 61017 EKG Tracing & Interpretation Completed 03/20/2007 [id number] Mammogram Completed 01/09/2007 07310506 Colonoscopy Completed 03/12/2006 [id number] Mammogram Completed Encounters Type Date Location Provider Dx Diagnosis Office Visit 10/07/2018 [facility] Internal Heather Sanderson, Z01.818 Encounter for other 4:00p Medicine - N.P. preprocedural [place] examination H26.9 Unspecified cataract I10 Essential (primary) hypertension E78.00 Pure hypercholesterolemia, unspecified Office Visit 08/18/2018 4:00p [facility] Qutaike SHansel I10 Essential Jose Pace (primary) hypertension E78.2 Mixed hyperlipidemia Office Visit 04/03/2018 3:40p [facility] Internal Heather Sanderson, M25.50 Pain in Medicine - N.P. unspecified joint [place] E78.00 Pure hypercholesterolemia, unspecified Office Visit 02/16/2018 4:00p [facility] Internal Heather Sanderson, I10 Essential ( primary) Medicine - N.P. hypertension [place] N64.4 Mastodynia Office Visit 01/21/2018 2:20p [facility] Internal Heather Sanderson, Z00.00 Encntr for Medicine - N.P. general adult [place] medical exam w/o abnormal findings G43.909 Migraine, unsp, not intractable, without status migrainosus E78.00 Pure hypercholesterolemia, unspecified F32.9 Major depressive disorder, single episode, unspecified E07.9 Disorder of thyroid, unspecified R03.0 Elevated blood-pressure reading, w/o diagnosis of htn Z00.01 Encounter for general adult medical exam w abnormal findings Office Visit 11/14/2017 1:00p [facility] Internal Doni Raphael, J02.9 Acute pharyngitis, Medicine - [employer] unspecified [address] R05 Cough Office Visit 08/20/2017 [place] Julien S. I35.1 Nonrheumatic aortic 4:00p Cardiology Jose Pace (valve) insufficiency I36.1 Nonrheumatic tricuspid (valve) insufficiency E78.00 Pure hypercholesterolemia, unspecified Office Visit 07/15/2017 4:20p [facility] Dermatology Zane Ferguson MD L71.8 Other rosacea D23.72 Oth benign neoplasm skin/ left lower limb, including hip L81.3 [place] spots D18.01 Hemangioma of skin and subcutaneous tissue Office Visit 11/13/2016 4:00p [facility] Revataybperfecto S. R00.2 Palpitations Jose Pace I35.1 Nonrheumatic aortic (valve) insufficiency E78.00 Pure hypercholesterolemia, unspecified Office Visit 11/05/2016 9:20a [facility] Internal Heather Sanderson, Z00.01 Encounter for Medicine - N.P. general adult [place] medical exam w abnormal findings E78.00 Pure hypercholesterolemia, unspecified G43.909 Migraine, unsp, not intractable, without status migrainosus F32.9 Major depressive disorder, single episode, unspecified M84.374D Stress fracture, right foot, subs for fx w routn heal Office Visit 10/14/2016 [place] MatosHansel R00.0 Tachycardia, 9:00a Cardiology Jose Pace unspecified R00.2 Palpitations I49.3 Ventricular premature depolarization E78.4 Other hyperlipidemia Office Visit 10/10/2016 11:15a [facility] S90.31xD Contusion of Services Of Jose Carrasco right foot, C.M.A. subsequent encounter S92.244D Nondisp fx of med adrian of ft, 7thD Office Visit 09/11/2016 [facility] M65.871 Other synovitis and 1:20p Services Of Katherine Carrasco M.D. tenosynovitis, AT [place] right ankle and foot Office Visit 07/30/2016 [facility] M79.671 Pain in right foot 1:40p Services Of Jose Carrasco C.M.A. Office Visit 07/23/2016 Katherine Sanderson M79.671 Pain in right foot 1:00p Medicine - N.P. [place] R60.0 Localized edema Office Visit 04/23/2016 2:40p [facility] Internal Heather Sanderson R00.0 Tachycardia, Medicine - N.P. unspecified [place] Office Visit 09/19/2015 9:30a Orthopedic Francisco Mccullough M70.61 Trochanteric Services Of bursjuayn, right C.M.A. hip Office Visit 09/13/2015 2:40p [facility] Internal Heather Sanderson M70.61 Trochanteric Medicine - N.P. bursitis, right [place] hip Office Visit 08/04/2015 3:20p [facility] Internal Heather Sanderson Z00.01 Encounter for Medicine - N.P. general adult [place] medical exam w abnormal findings E78.0 Pure hypercholesterolemia E04.2 Nontoxic multinodular goiter G43.909 Migraine, unsp, not intractable, without status migrainosus F32.9 Major depressive disorder, single episode, unspecified Office Visit 05/09/2015 9:00a [facility] Internal Anshul Howe, 599.0 UTI Urinary Tract Medicine - [place] PASTRY MIXER Infection Site Rd Not Spec Office Visit 10/25/2014 2:20p [facility] Internal Heather Sanderson, 719.45 Pain Joint Pelvic Medicine - N.P. Region & Thigh [place] Office Visit 08/01/2014 3:00p [facility] Internal Heather Sanderson, V70.0 Examination Medicine - N.P. [facility] Routine AT Health Care Facility V72.31 Routine Erecting Crane Operator Examination 272.4 Hyperlipidemia Other Unspec 477.9 Rhinitis Allergic Cause Unspec 241.0 Goiter Nontoxic Uninodular 461.9 Sinusitis Acute Unspec V05.8 Single Disease Spec Other Vaccination & Inoculation v04.89 Need For Prophylactic Vaccination & Inoculation Other Virus Office Visit 07/30/2013 3:00p [facility] Internal Heather Sanderson, V70.0 Examination Medicine - N.P. [facility] Routine AT Health Care Facility 272.4 Hyperlipidemia Other Unspec 346.90 Migraine Unspec W/O Intractable W/O Status Migrainosus 241.0 Goiter Nontoxic Uninodular 477.9 Rhinitis Allergic Cause Unspec 311 Depressive Disorder Not Elsewhere Spec V72.31 Routine Erecting Crane Operator Examination Office Visit 03/19/2013 Orthopedic Ira 727.43 Ganglion Unspec 9:00a Services Of Jose Pollock C.M.A. Office Visit 02/03/2013 [facility] Internal Heather Sanderson, 727.43 Ganglion Unspec 11:20a Medicine - N.P. [place] Office Visit 07/28/2012 [facility] Internal Heather Sanderson, V70.0 Examination 3:00p Medicine - N.P. [facility] Routine AT Health Care Facility V72.31 Routine Erecting Crane Operator Examination 272.4 Hyperlipidemia Other Unspec 346.90 Migraine Unspec W/O Intractable W/O Status Migrainosus 241.0 Goiter Nontoxic Uninodular 311 Depressive Disorder Not Elsewhere Spec 477.9 Rhinitis Allergic Cause Unspec V73.89 Screening Examination Viral Diseases Other Spec Office Visit 04/15/2012 4:20p [facility] Internal Heather Sanderson, 461.9 Sinusitis Acute Medicine - N.P. Unspec [place] 466.0 Bronchitis Acute Office Visit 01/07/2012 [facility] Internal Heather Sanderson, 719.44 Pain Joint Hand 4:20p Medicine - N.P. [place] Office Visit 08/27/2011 DO Not Use Heather Sanderson, 272.4 Hyperlipidemia Other 3:40p [employer]ating Equipment [employer]-[place] N.P. Unspec 246.9 Thyroid Disorders Unspec Office Visit 07/26/2011 DO Not Use Heather Varn, V70.0 Examination 8:40a [employer]ating [employer] N.P. General Medical Routine AT Health Care Facility V72.31 Routine Erecting Crane Operator Examination 246.9 Thyroid Disorders Unspec 272.4 Hyperlipidemia Other Unspec Office Visit 01/16/2011 11:00a DO Not Use Snow Skyla, 466.0 Bronchitis Acute Katherine-Garcia Garcia, FACP Office Visit 01/02/2011 10:45a DO Not Use Snow Skyla, 780.61 Fever Presenting Rotating Equipment Engineer-Garcia Garcia, FACP W/Conditions Classified Elsewhere 465.9 URI Upper Respiratory Infections Acute Unspec Sites Office Visit 05/28/2010 DO Not Use Heather V72.31 Routine Erecting Crane Operator 3:00p [employer] Varn, N.P. Examination Office Visit 05/19/2009 DO Not Use Heather V72.31 Routine Erecting Crane Operator 8:45a [employer]ating [employer]-[place] Varn, N.P. Examination Office Visit 09/13/2008 DO Not Use Heather 726.32 Epicondylitis 11:00a [employer]ating [employer] Varn, N.P. Lateral 692.9 Dermatitis Unspec Cause Due To Spec Agents Other V04.81 Need For Prophylactic Vaccination & Inoculation/Influenza Office Visit 05/17/2008 DO Not Use Heather Varn, V72.31 Routine Erecting Crane Operator 9:00a [employer]ating Equipment Engineer[facility] N.P. Examination 241.0 Goiter Nontoxic Uninodular Office Visit 12/22/2007 10:15a DO Not Use [employer] Heather Varn, 786.2 Cough N.P. 462 Pharyngitis Acute Office Visit 10/06/2007 DO Not Use Heather Varn, 627.2 Menopausal Or 11:30a [employer] N.P. Female Climacteric State, Symptomatic Office Visit 06/25/2007 DO Not Use Heather Varn, 627.2 Menopausal Or 8:45a [employer]ating [employer] Engineer[facility] N.P. Female Climacteric State, Symptomatic Office Visit 05/08/2007 DO Not Use Snow Skyla, V72.31 Routine Erecting Crane Operator 9:00a [employer] M.Young., FACP Examination 272.0 Hypercholesterolemia Pure Office Visit 01/28/2007 4:30p DO Not Use Heather Varn, 461.9 Sinusitis Acute [facility]-[place] N.P. Unspec Office Visit 11/28/2006 4:00p DO Not Use Heather Varn, 461.9 Sinusitis Acute [facility]-[place] N.P. Unspec 346.01 Migraine W/Aura/Intractable Migrain W/O Men Status Migrainos Office Visit 09/23/2006 4:00p DO Not Use Heather Varn, 719.41 Pain Joint [employer] N.P. 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 at [facility] Internal Medicine - Cixfjrioj67/18/2018 - Heather Meenun, N.P.J01.90 Acute sinusitis, unspecifiedNew Medication:Augmentin 875-125 mg - one by mouth every 12 hours for ten daysComments:For your sinus infection: I sent a prescription for Augmentin to the pharmacy. Take 1 tablet every 12 hours until they are gone. Take this with a little food. Continue to use Flonase and saline nasal sprays.J20.9 Acute bronchitis, unspecifiedNew Medication:Ventolin HFA 108(90 Base) mcg/Act - 1 to 2 inhalations every 4 hours as neededComments:For your bronchitis I have sent in a prescription for an inhaler, Ventolin. You may take 1 - 2 inhalations, every 4 hours as needed for cough.If your symptoms do not improve or if you should start to feel worse call the office.
--- OUTSIDE RECORDS SUMMARY | 2018-11-07 12:42 | XMS REPORT | Continuity of Care Document ---
:1950 External Reference #:[id number] Author Name Rodrigo Merida M.D. Address [address] [facility] [address] [place] [place] [address] Care Team Providers Name Role Phone Heather Sanderson NP Care Team Information [employer] Operator Unavailable Heather Sanderson NP Primary Care Physician Unavailable Payers Type Date Identification Numbers Payment Provider Subscriber Policy Number: [id number] Medicare [place] Nicole Gamble PayID: [id number] [address] [place] [address] Policy Number: [id number] / [place] [employer] Nicole Burr [employer] Number: [id number] [address] [address] PayID: [id number] [place] [address] Advance Directives Description No Information Available Problems [...] Patient has never smoked Smoking Status Reviewed: 10/14/18 Patient has never smoked Allergies, Adverse Reactions, Alerts Description No Known Drug Allergies Medications Medication Date Status Form Strength Qnty SIG Indications Ordering Provider Vigamox 10/07 Active Solution 0.5% 3ml 1 drop left eye Merida, four M.D. times a day, start drops morning of surgery Ketorolac 10/07 Active Solution 0.5% 5ml 1 drops Trometh left eye Magnolia, twice a M.D. day Pred Forte 10/07 Active Suspension 1% 10ml 1 drops left eye Magnolia, four M.D. times a day Lipitor Active Tablets Unknown /0000 Zyrtec Allergy Active Capsules Unknown Hydrochlorothiazide Active Tablets 25mg Take 1 Unknown /0000 Tablet By Mouth Every Day Zaditor Hx Solution 0.025% 1 drops Unknown [...] Information Available Procedures Date Code Description Status 10/02/2018 96787 Ophthalmic Biometry By Partial Coherence Interferometry Completed W/Intra 09/07/2018 70994 Eye Exam Est Intermediate Completed 11/14/2017 75047 Refraction Completed 11/14/2017 28700 Eye Exam Est Intermediate Completed 11/08/2016 68609 Ophthalmoscopy Subsequent Completed 11/08/2016 24469 Refraction Completed 11/08/2016 88487 Eye Exam Est Intermediate Completed 09/14/2015 89661 Ophthalmoscopy Subsequent Completed 09/14/2015 72812 Eye Exam Est Comprehensive Completed 08/24/2014 92460 Ophthalmoscopy Subsequent Completed 08/24/2014 46686 Eye Exam Est Comprehensive Completed 06/24/2011 02961 Eye Exam Est Comprehensive Completed 06/24/2011 95684 Refraction Completed 06/24/2011 66431 Ophthalmoscopy Subsequent Completed 09/03/2010 301 Contact Lens Fit $25 Completed 08/03/2010 304 Contact Lens Fit $150 Completed 07/02/2010 51695 Eye Exam Est Comprehensive Completed 06/26/2009 52025 Eye Exam Est Comprehensive Completed 06/08/2008 73632 Ophthalmoscopy Subsequent Completed 06/08/2008 49253 Eye Exam Est Intermediate Completed 05/24/2008 80842 Ophthalmoscopy Initial Completed 05/24/2008 27028 Refraction Completed 05/24/2008 72588 Eye Exam Est Comprehensive Completed 01/19/2007 31956 Refraction Completed 01/19/2007 43299 Eye Exam New Comprehensive Completed Encounters Type Date Location Provider Dx Diagnosis Office Visit 10/02/2018 Main Office Rodrigo Merida, H25.013 Cortical 9:30a MClement age-related cataract, bilateral 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 The patient was advised that the eye tolerated the surgery well without complications. Patient was given eye drop schedule and implant card.The patient was told to wear an eye shield QHS for one week and sunglasses daily. The patient was also advised to contact us immediately if new symptoms or visual changes are noted such as pain, worsening redness, flashes, floaters or decrease in vision.Follow up:The patient is to return in one week to follow up after cataract surgery and sooner if needed.
[2018-11-07 12:50] VITALS: BP 135/82
--- NOTE | 2018-11-07 13:12 | UC ---
Complaint Female HPI - HPI Summary HPI Summary: 3 days of dysuria mostly in the AM and then resolves by the evening. has been drinking a lot of water. nothing makes it worse. denies vaginal discharge. declines chlam/maximiliano testing. - History Of Current Complaint Chief Complaint: UCGU Stated Complaint: PAIN W/ URINATION, BLOOD IN URINE Time Seen by Provider: 11/07/18 13:09 Hx Obtained From: Patient Pain Intensity: 0 Character: Sharp Aggravating Factor(s): Nothing Alleviating Factor(s): Other - water - Allergies/Home Medications Allergies/Adverse Reactions: Allergies Allergy/AdvReac Type Severity Reaction Status Date / Time Hay Fever Allergy Runny Nose Uncoded 11/07/18 12:50 PMH/Surg Hx/FS Hx/Imm Hx Previously Healthy: Yes - Surgical History Surgical History: Yes Surgery Procedure, Year, and Place: 2 C-sections - Family History Known Family History: Positive: Other - cancer Negative: Cardiac Disease, Hypertension, Diabetes, Renal Disease, Respiratory Disease, Seizure Disorder - Social History Alcohol Use: Rare Substance Use Type: None Smoking Status (MU): Never Smoked Tobacco Review of Systems All Other Systems Reviewed And Are Negative: Yes Constitutional: Negative: Fever, Chills, Fatigue Skin: Positive: Negative Genitourinary: Positive: Dysuria. Negative: Hematuria, Frequency, Vaginal/ Penile Burning, Vaginal/Penile Itching, Vaginal/Penile Discharge, Vaginal/ Penile Pain Physical Exam Triage Information Reviewed: Yes Appearance: Well-Appearing Vital Signs: Initial Vital Signs Temp 98.3 F 11/07/18 12:47 Pulse 84 11/07/18 12:47 Resp 18 11/07/18 12:47 BP 135/82 11/07/18 12:47 Pulse Ox 98 11/07/18 12:47 Respiratory Exam: Normal Cardiovascular Exam: Normal Abdomen Description: Positive: Nontender, Soft. Negative: CVA Tenderness (R), CVA Tenderness (L) Complaint Female Dx - Course Course Of Treatment: acute dysuria w/ + UA. will tx for uncomplicated uti and send for culture. offered chlam/maximiliano testing but she declined. exam unremarkable and vitals good. - Differential Dx/Diagnosis Differential Diagnosis/HQI/PQRI: Sexually Transmitted Disease, Urinary Tract Infection Provider Diagnosis: UTI (urinary tract infection) Discharge - Sign-Out/Discharge Documenting (check all that apply): Patient Departure All imaging exams completed and their final reports reviewed: No Studies - Discharge Plan Condition: Good Disposition: HOME Prescriptions: Nitrofurantoin Monohyd/M-Cryst [Macrobid 100 mg Capsule] 100 mg PO BID 5 Days # 10 cap Patient Education Materials: Urinary Tract Infection in Women (ED) Referrals: Janette Bailon MD [Primary Care Provider] - Additional Instructions: Please follow up with pcp if symptoms persist. - Billing Disposition and Condition Condition: GOOD Disposition: Home
== END 2018-11-07 13:15 | disposition home or self-care (01) ==
LOC: UCEAST 11:50
DX: N39.0 Urinary tract infection, site not specified (principal); Z91.09 Other allergy status, other than to drugs and biological substances
CPT/HCPCS: 81003; 87077; 87086; 87186; 99212; G0463

== ENCOUNTER 2019-01-26 06:23 | Day surgery (SDC) | payer MEDICARE, BC ==
[~2019-01-26 06:23] MED LIST changes: -Buffered Lidocaine 0.9% SYRIN* 5 ML/SYR SYRINGE INTRADERM ONE; +Buffered Lidocaine 1% SYRIN* 1 ML/SYRINGE INTRADERM ONE
[2019-01-26] MEDS ORDERED: fentaNYL* 50 MCG/ML 2 ML VIAL (100 MCG VIAL) ONE (07:18)
[2019-01-26] MEDS ORDERED: Midazolam* 1 MG/ML 2 ML VIAL (2 MG) ONE (07:18)
[2019-01-26 08:14] VITALS: BP 121/69
--- NOTE | 2019-01-26 09:51 | OP ---
OPERATIVE REPORT: DATE OF OPERATION: 01/26/19 - MARILYN DATE OF : 50 SURGEON: Rodrigo Merida MD FASTENER TECHNOLOGIST: None. ANESTHESIOLOGIST: Loan Palmer DO ANESTHESIA: Topical with intravenous sedation. PRE-OP DIAGNOSIS: Cataract with astigmatism, amblyopia, right eye. POST-OP DIAGNOSIS: Cataract with astigmatism, amblyopia, right eye. OPERATIVE PROCEDURE: Phacoemulsification and cataract extraction with posterior chamber toric intraocular lens implant, right eye. COMPLICATIONS: None. BLOOD LOSS: None. OPERATIVE FINDINGS: The patient was seen preoperatively in the holding area where she was placed in upright position and a irma was made at the 6 o'clock position of the limbus of the right eye. The patient was subsequently brought to the operating room and received intravenous sedation. A drop of tetracaine was placed into her right eye. The patient was prepped and draped in the usual sterile fashion for ophthalmic surgery and attention was directed to the right eye, where a speculum was placed. A paracentesis was created at the 11 o'clock position and 0.1 cc of 1% preservative-free lidocaine was injected into the anterior chamber followed by DisCoVisc. The eye was digitally stabilized while a 2.75-mm keratome was used to create a triplanar clear corneal incision at 9 o' clock position. A continuous curvilinear capsulorrhexis was created with a cystotome and Utrata forceps. BSS on a cannula was used to hydrodissect the lens from the capsule. Phacoemulsification was performed in a divide-and- conquer technique to create 4 fragments, which were removed. Residual cortical material was removed with irrigation and aspiration. Provisc was used to inflate the capsular bag. An intraoperative tonometer was used to confirm the pressure was proper and the surface of the eye was lubricated. The ORA was implemented to help guide the lens choice. An [id number] diopter lens was folded and inserted in the capsular bag. It was dialed to the 97-degree axis. The lens was stabilized with Sinskey hook through the paracentesis while irrigation and aspiration were performed to remove viscoelastic from the eye. BSS on a cannula was used to hydrate the corneal stroma and seal the wound. At the end of the case, the pupil was round, the lens was centered, stable and axially aligned. The eye pressure appeared normal and the wound was watertight. The speculum was removed and topical Maxitrol ointment was placed in the surface of the eye. The eye was closed, patched and shielded and the patient was sent to the recovery room in stable condition with postop instructions and followup appointment given. [id number] #: [id number] MTDD
[2019-01-26] MEDS ORDERED: Cyclopentolate 1% OPTH.SOL* 2 ML BTL ONE (14:54)
[2019-01-26] MEDS ORDERED: Lidocaine 1%* 5 ML VIAL ONE (14:54)
[2019-01-26] MEDS ORDERED: Tropicamide 1% OPTH.SOL* BTL ONE (14:54)
[2019-01-26] MEDS ORDERED: Ketorolac 0.5% OPHTH (NF) 0.5 % 5 ML BTL ONE (14:54)
[2019-01-26] MEDS ORDERED: Phenylephrine OPHTH SOL 2.5%* 2 ML ONE (14:54)
[2019-01-26] MEDS ORDERED: Tetracaine 0.5% OPTH.SOL 4 ML* 1 DROP BTL ONE (14:54)
[2019-01-26] MEDS ORDERED: Neomycin/Polymy/Dex OPHTH.OIN* 3.5 GM ONE (14:54)
== END 2019-01-26 08:35 | disposition home or self-care (01) ==
LOC: OREAST 06:23
PROVIDERS: ATTEND Ophthalmology
DX: H25.11 Age-related nuclear cataract, right eye (principal); H52.201 Unspecified astigmatism, right eye; H53.001 Unspecified amblyopia, right eye; I10 Essential (primary) hypertension; E78.5 Hyperlipidemia, unspecified
CPT/HCPCS: A9270-GY; J2250; J3010; V2787